=== PATIENT | female | born 1950 | race Hispanic/Latino ===

== ENCOUNTER 2017-01-20 15:00 | Inpatient (IN) | payer OTHER, MEDICARE ==
[~2017-01-20] VITALS: Ht 152.4 cm; Wt 59.0 kg
[2017-02-07 15:06] VITALS: BP 119/66
[2017-02-07 15:42] LABS: BASOPHILS % (AUTO) 0.1 % (0.0-5.0); EOSINOPHILS % (AUTO) 2.4 % (0.0-8.0); HEMATOCRIT 34.7 % (36-48); MEAN CORPUSCULAR HEMOGLOBIN 29.9 pg (27.0-33.0); MEAN CORPUSCULAR HGB CONC 34.3 g/dL (32.0-36.0); MEAN CORPUSCULAR VOLUME 87.1 fL (79-99); MONOCYTES % (AUTO) 8.2 % (3.0-13.0); NEUTROPHILS % (AUTO) 58.3 % (40.0-77.0); NUCLEATED RED BLOOD CELLS 0.1 % (0.0-0.19); PLATELET COUNT (AUTO) 508 K/uL (130-400); RED BLOOD CELL COUNT(AUTO) 3.98 MIL/uL (4.00-5.50); RED CELL DISTRIBUTION WIDTH 13.4 % (11.0-15.5); WHITE BLOOD COUNT (AUTO) 8.6 K/uL (4.8-10.8)
[2017-02-07 15:43] LABS: APPEARANCE,URINE Clear (CLEAR); BILIRUBIN,URINE Negative (NEGATIVE); COLOR,URINE Yellow (YELLOW); GLUCOSE, URINE (UA) Negative (NEGATIVE); KETONES,URINE Negative (NEGATIVE); LEUKOCYTE ESTERASE ,URINE Negative (NEGATIVE); NITRATE,URINE Negative (NEGATIVE); OCCULT BLOOD,URINE Negative (NEGATIVE); PH,URINE 8.5 (5.0-8.0); PROTEIN,URINE Negative (NEGATIVE); UROBILINOGEN,URINE 0.2 mg/dL (0.2-1.0)
[2017-02-07 15:47] LABS: INR 0.95 (0.85-1.15); PARTIAL THROMBOPLASTIN TIME 24.9 SEC (26.3-35.5)
[2017-02-07 15:55] LABS: CREATININE 0.8 mg/dL (0.5-1.5); POTASSIUM 3.3 mmol/L (3.5-5.1)
[2017-02-07] MEDS ORDERED: ACET1TAB25 PO (16:18)
[2017-02-07] MEDS ORDERED: PREMC VG (16:18)
[2017-02-07] MEDS ORDERED: OMEP20CA10 PO (16:19)
[2017-02-07] MEDS ORDERED: LEVO88TA7 PO (16:20)
[2017-02-07] MEDS ORDERED: VENL-62 PO (16:20)
[2017-02-07] MEDS ORDERED: CALC667C10 PO (16:21)
[2017-02-07] MEDS ORDERED: LOSA1TAB54 PO (16:21)
[2017-02-07] MEDS ORDERED: CALC0.5C11 PO (16:22)
[2017-02-07] MEDS ORDERED: POTA10CA69 PO (16:23)
[2017-02-07] MEDS ORDERED: FLUT16H NS (16:24)
[2017-02-07] MEDS ORDERED: CYCL30DR OP (16:25)
[2017-02-07] MEDS ORDERED: ATOR10 PO (16:25)
[2017-02-07] MEDS ORDERED: AMLO10TA2 PO (16:26)
[2017-02-08] VITALS (20 sets, daily range): BP systolic 116–178; BP diastolic 61–78
[2017-02-08] MEDS: CEFAZOLIN SODIUM 1 GM VIAL IVP SCH ×4 (06:00→23:46)
[2017-02-08] MEDS ORDERED: CELECOXIB 200 MG CAP ONE (08:11)
[2017-02-08] MEDS ORDERED: ACETAMINOPHEN EXTRA STRENGTH 500 MG TABLET ONE (08:11)
[2017-02-08] MEDS ORDERED: BUPIVACAINE/EPI/PF 0.25% 30ML VIAL IJ ONE (08:12)
[2017-02-08] MEDS ORDERED: CEFAZOLIN SODIUM 1 GM VIAL ONE (08:12)
[2017-02-08] MEDS ORDERED: OXYCODONE HCL 10 MG TAB.SR.12H PO ONE (08:12)
[2017-02-08] MEDS ORDERED: SCOPOLAMINE HYDROBROMIDE 1 EACH ADH..PATCH TD ONE (08:15)
[2017-02-08] MEDS ORDERED: ONDANSETRON HCL 4 MG/2 ML VIAL ONE (08:17)
[2017-02-08] MEDS ORDERED: DEXAMETHASONE SOD PHOSPHATE 10MG/ML 1ML VIAL ONE (08:17)
[2017-02-08] MEDS ORDERED: GLYCOPYRROLATE 0.2 MG/ML 5 ML VIAL ONE (08:17)
[2017-02-08] MEDS ORDERED: FENTANYL CITRATE PF 50 MCG/1 ML 2ML VIAL ONE (08:17)
[2017-02-08] MEDS ORDERED: MIDAZOLAM HCL 1 MG/ML 2ML VIAL ONE (08:17)
[2017-02-08] MEDS ORDERED: PROPOFOL 10 MG/ML 20ML VIAL IV ONE (08:17)
[2017-02-08] MEDS ORDERED: TRANEXAMIC ACID 1000MG/10ML IV ONE (08:39)
[2017-02-08] MEDS ORDERED: CEFAZOLIN SODIUM 1 GM VIAL IRRIG ONE (09:22)
[2017-02-08] MEDS ORDERED: EPHEDRINE SULFATE 50 MG/ML AMPULE ONE (09:25)
[2017-02-08] MEDS ORDERED: ROPIVACAINE 0.5% 5MG/ML 30ML IJ ONE (09:38)
[2017-02-08] MEDS: ACETAMINOPHEN 325 MG TAB PO SCH ×3 (11:45→23:46)
[2017-02-08] MEDS ORDERED: OXYCODONE HCL 5 MG TAB PO PRN ×2 (11:45)
[2017-02-08] MEDS ORDERED: POTASSIUM CHLORIDE 10% ELIXIR 20 MEQ/15 ML UDCUP PO PRN (11:45)
[2017-02-08] MEDS ORDERED: POTASSIUM CHLORIDE 20 MEQ ERTAB PO PRN (11:45)
[2017-02-08] MEDS ORDERED: POTASSIUM CHLORIDE 20MEQ/100ML 100 ML IV PRN (11:45)
[2017-02-08] MEDS ORDERED: LIDOCAINE HCL-MPF 1% 2ML VIAL IVP PRN (11:45)
[2017-02-08] MEDS ORDERED: TEMAZEPAM 15 MG CAPSULE PO PRN (11:45)
[2017-02-08] MEDS ORDERED: CALCIUM CARBONATE 500 MG TABLET PO PRN (11:45)
[2017-02-08] MEDS ORDERED: FERROUS FUMARATE 324 MG TABLET PO PRN (11:45)
[2017-02-08] MEDS: PSYLLIUM SEED 1 EACH PACKET PO SCH (12:00)
[2017-02-08] MEDS ORDERED: MEPERIDINE-PF 25 MG/ML SYG ONE (12:18)
[2017-02-08] MEDS: SODIUM CHLORIDE 0.9% 1000ML 1,000 ML IV SCH ×2 (16:24→23:47)
[2017-02-08] MEDS ORDERED: CEFAZOLIN 2GM / 50 ML 50 ML IV SCH (16:45)
[2017-02-08] MEDS: ASPIRIN 325 MG TABLET PO SCH (17:22)
[2017-02-08] MEDS: WATER FOR INJECTION,STERILE 20 ML VIAL IJ SCH ×2 (17:24→23:47)
[2017-02-08] MEDS: CALCIUM ACETATE 667 MG CAPSULE PO SCH (20:22)
[2017-02-08] MEDS: CALCITRIOL 0.25 MCG CAPSULE PO SCH (20:22)
[2017-02-08] MEDS: POTASSIUM CHLORIDE 20 MEQ ERTAB PO SCH (20:22)
[2017-02-08] MEDS: PREGABALIN 25 MG CAP PO SCH (20:27)
[2017-02-08] MEDS: ESTROGENS,CONJUGATED 0.625 MG/GM 42.5 GM VAG CRM VG SCH (20:27)
[2017-02-08] MEDS: CELECOXIB 200 MG CAP PO SCH (20:27)
[2017-02-08] MEDS: FAMOTIDINE 20MG TAB 20 MG TAB PO SCH (20:27)
[2017-02-08] MEDS: PROMETHAZINE HCL 25 MG/ML 1ML AMPULE IM PRN (23:47)
[2017-02-09] VITALS: BP 119/63
[2017-02-09] MEDS ORDERED: LEVOTHYROXINE 88 MCG TABLET ONE (03:20)
[2017-02-09] MEDS: LEVOTHYROXINE 88 MCG TABLET PO SCH (03:33)
[2017-02-09 04:00] VITALS: BP 128/68
[2017-02-09 05:12] LABS: HEMATOCRIT 30.3 % (36-48); MEAN CORPUSCULAR HEMOGLOBIN 29.6 pg (27.0-33.0); MEAN CORPUSCULAR HGB CONC 34.4 g/dL (32.0-36.0); MEAN CORPUSCULAR VOLUME 85.9 fL (79-99); PLATELET COUNT (AUTO) 431 K/uL (130-400); RED BLOOD CELL COUNT(AUTO) 3.53 MIL/uL (4.00-5.50); RED CELL DISTRIBUTION WIDTH 13.1 % (11.0-15.5); WHITE BLOOD COUNT (AUTO) 14.8 K/uL (4.8-10.8)
[2017-02-09 05:20] LABS: CREATININE 0.8 mg/dL (0.5-1.5)
[2017-02-09] MEDS: ACETAMINOPHEN 325 MG TAB PO SCH ×3 (05:31→16:29)
[2017-02-09 07:44] VITALS: BP 126/73
[2017-02-09] MEDS: CALCIUM ACETATE 667 MG CAPSULE PO SCH ×3 (09:00→20:10)
[2017-02-09] MEDS: CALCITRIOL 0.25 MCG CAPSULE PO SCH ×2 (09:00→20:11)
[2017-02-09] MEDS: POTASSIUM CHLORIDE 20 MEQ ERTAB PO SCH ×2 (09:00→20:08)
[2017-02-09] MEDS: ASPIRIN 325 MG TABLET PO SCH ×2 (10:15→16:33)
[2017-02-09] MEDS: FLUTICASONE PROPIONATE 50MCG/SPRAY 16 GM BOTTLE NS SCH (10:15)
[2017-02-09] MEDS: CELECOXIB 200 MG CAP PO SCH ×2 (10:15→20:07)
[2017-02-09] MEDS: ATORVASTATIN CALCIUM 10 MG TABLET PO SCH (10:16)
[2017-02-09] MEDS: VENLAFAXINE HCL XR 37.5 MG CAP PO SCH (10:16)
[2017-02-09] MEDS: LOSARTAN/HYDROCHLOROTHIAZIDE 50-12.5MG TABLET PO SCH (10:16)
[2017-02-09] MEDS: FAMOTIDINE 20MG TAB 20 MG TAB PO SCH ×2 (10:17→20:07)
[2017-02-09] MEDS: PANTOPRAZOLE SODIUM 40 MG TABLET.DR PO SCH (10:17)
[2017-02-09] MEDS: AMLODIPINE BESYLATE 5 MG TAB PO SCH (10:17)
[2017-02-09] MEDS: PREGABALIN 25 MG CAP PO SCH ×2 (10:17→20:07)
[2017-02-09] MEDS: POLYETHYLENE GLYCOL 3350 17 GM POWD.PACK PO SCH (10:17)
[2017-02-09] MEDS: PROMETHAZINE HCL 25 MG/ML 1ML AMPULE IM PRN (10:23)
[2017-02-09 11:19] VITALS: BP 110/51
[2017-02-09] MEDS: PSYLLIUM SEED 1 EACH PACKET PO SCH (12:55)
[2017-02-09 16:16] VITALS: BP 136/66
[2017-02-09 20:00] VITALS: BP 117/59
[2017-02-09] MEDS: ESTROGENS,CONJUGATED 0.625 MG/GM 42.5 GM VAG CRM VG SCH (20:12)
[2017-02-10] VITALS: BP 122/58
[2017-02-10] MEDS: LEVOTHYROXINE 88 MCG TABLET PO SCH (03:26)
[2017-02-10 04:00] VITALS: BP 120/56
[2017-02-10] MEDS: ACETAMINOPHEN 325 MG TAB PO SCH ×4 (05:32→17:05)
[2017-02-10 05:54] LABS: HEMATOCRIT 28.5 % (36-48); MEAN CORPUSCULAR HEMOGLOBIN 30.1 pg (27.0-33.0); MEAN CORPUSCULAR HGB CONC 34.3 g/dL (32.0-36.0); MEAN CORPUSCULAR VOLUME 87.7 fL (79-99); PLATELET COUNT (AUTO) 424 K/uL (130-400); RED BLOOD CELL COUNT(AUTO) 3.25 MIL/uL (4.00-5.50); RED CELL DISTRIBUTION WIDTH 13.5 % (11.0-15.5); WHITE BLOOD COUNT (AUTO) 10.9 K/uL (4.8-10.8)
[2017-02-10 06:19] LABS: POTASSIUM 3.9 mmol/L (3.5-5.1)
[2017-02-10 08:00] VITALS: BP 108/57
[2017-02-10] MEDS: CALCIUM ACETATE 667 MG CAPSULE PO SCH ×2 (09:11→14:29)
[2017-02-10] MEDS: POLYETHYLENE GLYCOL 3350 17 GM POWD.PACK PO SCH (09:11)
[2017-02-10] MEDS: CALCITRIOL 0.25 MCG CAPSULE PO SCH (09:11)
[2017-02-10] MEDS: PREGABALIN 25 MG CAP PO SCH (09:11)
[2017-02-10] MEDS: PANTOPRAZOLE SODIUM 40 MG TABLET.DR PO SCH (09:12)
[2017-02-10] MEDS: AMLODIPINE BESYLATE 5 MG TAB PO SCH (09:12)
[2017-02-10] MEDS: ASPIRIN 325 MG TABLET PO SCH ×2 (09:12→17:05)
[2017-02-10] MEDS: CELECOXIB 200 MG CAP PO SCH (09:12)
[2017-02-10] MEDS: FAMOTIDINE 20MG TAB 20 MG TAB PO SCH (09:12)
[2017-02-10] MEDS: ATORVASTATIN CALCIUM 10 MG TABLET PO SCH (09:12)
[2017-02-10] MEDS: POTASSIUM CHLORIDE 20 MEQ ERTAB PO SCH (09:12)
[2017-02-10] MEDS: FLUTICASONE PROPIONATE 50MCG/SPRAY 16 GM BOTTLE NS SCH (09:13)
[2017-02-10] MEDS: VENLAFAXINE HCL XR 37.5 MG CAP PO SCH (09:13)
[2017-02-10] MEDS: LOSARTAN/HYDROCHLOROTHIAZIDE 50-12.5MG TABLET PO SCH (09:13)
[2017-02-10] MEDS: TRAMADOL HCL 50 MG TABLET PO PRN ×2 (09:17→15:22)
[2017-02-10] MEDS ORDERED: BISACODYL 5 MG TABLET.DR PO PRN (11:45)
[2017-02-10 12:00] VITALS: BP 130/60
[2017-02-10] MEDS: PSYLLIUM SEED 1 EACH PACKET PO SCH (12:04)
[2017-02-10 16:00] VITALS: BP 127/59
[2017-02-10] MEDS ORDERED: TYL3 PO (18:42)
[2017-02-10] MEDS ORDERED: ASPI-1012 PO (18:42)
[2017-02-11] MEDS ORDERED: BISACODYL 10 MG SUPP.RECT RC PRN (11:45)
== END 2017-02-10 20:35 | DRG 470 ==
LOC: EDSTATUS 02-07 15:00 → DAHIP 02-08 07:25 → 4AH 02-08 12:58
PROVIDERS: ADMIT Orthopaedic Surgery; ATTEND Orthopaedic Surgery
PROC: 0SRC0J9 Replacement of Right Knee Joint with Synthetic Substitute, Cemented, Open Approach (ICD-10-PCS; principal; 2017-02-08 08:33)
DX: T84.89XA Other specified complication of internal orthopedic prosthetic devices, implants and grafts, initial encounter (principal); E78.5 Hyperlipidemia, unspecified; I10 Essential (primary) hypertension; I25.10 Atherosclerotic heart disease of native coronary artery without angina pectoris; K21.9 Gastro-esophageal reflux disease without esophagitis; Y83.8 Other surgical procedures as the cause of abnormal reaction of the patient, or of later complication, without mention of misadventure at the time of the procedure; Z85.850 Personal history of malignant neoplasm of thyroid; Z90.710 Acquired absence of both cervix and uterus; Z88.8 Allergy status to other drugs, medicaments and biological substances
CPT/HCPCS: 36415; 76000; 80048; 81003; 84132; 85025; 85027; 85610; 85730; 87070; 87076; 87205; 88304; 88305; 88311; A4218; C1713; J0690; J1100; J2175; J2250; J2405; J2550; J2704; J2795; J3010; J3490; J7030

== ENCOUNTER → 2017-05-24 | Outpatient (CLI) | payer OTHER, MEDICARE ==
[~2017-05-24] MED LIST: ACET1TAB25 PO; AMLO10TA2 PO; ASPI-1012 PO; ATOR10 PO; CALC0.5C11 PO; CALC667C10 PO; CYCL30DR OP; FLUT16H NS; LEVO88TA7 PO; LOSA1TAB54 PO; OMEP20CA10 PO; POTA10CA69 PO; PREMC VG; TYL3 PO; VENL-62 PO
== END | disposition home or self-care (01) ==
LOC: RAH 12:43
PROVIDERS: ATTEND Family Medicine
DX: R42 Dizziness and giddiness (principal); R41.3 Other amnesia
CPT/HCPCS: 70450

== ENCOUNTER → 2017-06-08 | Outpatient (CLI) | payer OTHER, MEDICARE | END | disposition home or self-care (01) | LOC: RAH 09:44 | PROVIDERS: ATTEND Family Medicine | DX: R13.10 Dysphagia, unspecified (principal); R41.3 Other amnesia | CPT/HCPCS: G8996; G8997; G8998; 74230; 92611 ==

== ENCOUNTER → 2017-07-31 | Outpatient (CLI) | payer OTHER, MEDICARE | END | disposition home or self-care (01) | LOC: RAH 12:32 | PROVIDERS: ATTEND Family Medicine | DX: M79.606 Pain in leg, unspecified (principal) | CPT/HCPCS: 93926 ==

== ENCOUNTER → 2017-11-27 | Outpatient (CLI) | payer OTHER, MEDICARE ==
[~2017-11-27] MED LIST changes: -AMLO10TA2 PO; +AMLO10TA6 PO
== END | disposition home or self-care (01) ==
LOC: OIH 10:41
PROVIDERS: ATTEND Family Medicine
DX: M54.2 Cervicalgia (principal); M25.572 Pain in left ankle and joints of left foot; M25.511 Pain in right shoulder
CPT/HCPCS: 72040; 73030; 73610

== ENCOUNTER → 2017-12-13 | Outpatient (CLI) | payer OTHER, MEDICARE | END | disposition home or self-care (01) | LOC: RAH 10:33 | PROVIDERS: ATTEND Internal Medicine Gastroenterology | DX: R11.2 Nausea with vomiting, unspecified (principal); R10.9 Unspecified abdominal pain; R14.0 Abdominal distension (gaseous) | CPT/HCPCS: 78264; A9541 ==

== ENCOUNTER → 2018-01-09 | Outpatient (CLI) | payer OTHER, MEDICARE | END | disposition home or self-care (01) | LOC: RAH 09:36 | PROVIDERS: ATTEND Family Medicine | DX: R92.8 Other abnormal and inconclusive findings on diagnostic imaging of breast (principal); Z78.0 Asymptomatic menopausal state | CPT/HCPCS: 76641; 77066 ==

== ENCOUNTER → 2018-04-05 | Outpatient (CLI) | payer OTHER, MEDICARE ==
[~2018-04-05] MED LIST changes: -AMLO10TA6 PO; +AMLO10TA7 PO
== END | disposition home or self-care (01) ==
LOC: OIH 12:52
PROVIDERS: ATTEND Family Medicine
DX: I10 Essential (primary) hypertension (principal)
CPT/HCPCS: 71046

== ENCOUNTER → 2018-05-30 | Outpatient (CLI) | payer OTHER, MEDICARE | END | disposition home or self-care (01) | LOC: OIH 15:39 | PROVIDERS: ATTEND Internal Medicine | DX: M19.072 Primary osteoarthritis, left ankle and foot (principal); M19.071 Primary osteoarthritis, right ankle and foot | CPT/HCPCS: 73610 ==

== ENCOUNTER 2018-09-13 10:34 | Emergency (ER) | payer OTHER, MEDICARE ==
[~2018-09-13 10:34] MED LIST changes: +OMEP-50 PO; -OMEP20CA10 PO
[2018-09-13 11:15] LABS: APPEARANCE,URINE CLOUDY (CLEAR); BILIRUBIN,URINE NEGATIVE (NEGATIVE); COLOR,URINE YELLOW (YELLOW); GLUCOSE, URINE (UA) NEGATIVE (NEGATIVE); KETONES,URINE NEGATIVE (NEGATIVE); LEUKOCYTE ESTERASE ,URINE LARGE (NEGATIVE); NITRATE,URINE NEGATIVE (NEGATIVE); OCCULT BLOOD,URINE SMALL (NEGATIVE); PH,URINE 7.5 (5.0-8.0); PROTEIN,URINE TRACE mg/dL (NEGATIVE); UROBILINOGEN,URINE 0.2 mg/dL (0.2-1.0)
[2018-09-13] MEDS ORDERED: CEFTRIAXONE SODIUM 500 MG VIAL ONE (11:36)
[2018-09-13] MEDS ORDERED: METRONIDAZOLE 500 MG TABLET ONE (11:36)
[2018-09-13] MEDS ORDERED: LIDOCAINE HCL-MPF 1% 2ML VIAL ONE (11:37)
[2018-09-13] MEDS ORDERED: AZITHROMYCIN 250 MG TABLET PO ONE (11:37)
[2018-09-13 11:54] LABS: BACTERIA,URINE Moderate /HPF (None Seen)
[2018-09-13 11:55] LABS: MUCUS,URINE Moderate LPF (None Seen)
== END 2018-09-13 11:58 | disposition home or self-care (01) ==
LOC: EDH 10:34
DX: N76.0 Acute vaginitis (principal); A64 Unspecified sexually transmitted disease; K21.9 Gastro-esophageal reflux disease without esophagitis; I10 Essential (primary) hypertension; Z90.710 Acquired absence of both cervix and uterus; Z90.49 Acquired absence of other specified parts of digestive tract; Z88.6 Allergy status to analgesic agent
CPT/HCPCS: 81001; 87210; 87486; 87797; 96372; 99284; J0696; J3490

== ENCOUNTER 2018-09-17 17:53 | Observation (INO) | payer OTHER, MEDICARE ==
[2018-09-17 18:46] LABS: BASOPHILS % (AUTO) 0.3 % (0.0-5.0); EOSINOPHILS % (AUTO) 2.1 % (0.0-8.0); HEMATOCRIT 32.5 % (36-48); LYMPHOCYTES % (AUTO) 21.3 % (21.0-51.0); MEAN CORPUSCULAR HEMOGLOBIN 29.1 pg (27.0-33.0); MEAN CORPUSCULAR HGB CONC 33.7 g/dL (32.0-36.0); MEAN CORPUSCULAR VOLUME 86.6 fL (79-99); MONOCYTES % (AUTO) 6.2 % (3.0-13.0); NEUTROPHILS % (AUTO) 70.1 % (40.0-77.0); PLATELET COUNT (AUTO) 448 K/uL (130-400); RED BLOOD CELL COUNT(AUTO) 3.76 MIL/uL (4.00-5.50); RED CELL DISTRIBUTION WIDTH 14.4 % (11.0-15.5); WHITE BLOOD COUNT (AUTO) 11.9 K/uL (4.8-10.8)
[2018-09-17] MEDS ORDERED: PROCHLORPERAZINE EDISYLATE 10 MG/2 ML VIAL ONE (18:54)
[2018-09-17] MEDS ORDERED: SODIUM CHLORIDE 0.9% 1000ML 1,000 ML IV ONE (18:55)
[2018-09-17] MEDS ORDERED: ONDANSETRON ODT 4 MG TAB ONE (18:55)
[2018-09-17 18:58] LABS: INR 0.9 (0.85-1.15); PARTIAL THROMBOPLASTIN TIME 27.7 SEC (26.3-35.5); PROTHROMBIN TIME 9.5 SEC (9.6-11.6)
[2018-09-17 19:01] LABS: CREATININE 1.1 mg/dL (0.5-1.5); POTASSIUM 3.4 mmol/L (3.5-5.1)
[2018-09-17 19:06] LABS: ALBUMIN 3.6 g/dL (3.5-5.0); BILIRUBIN,TOTAL 0.2 mg/dL (0.2-1.0); TOTAL PROTEIN, SERUM 7.5 g/dL (6.0-8.3)
[2018-09-17] MEDS ORDERED: IOHEXOL-350 75 ML VIAL IV ONE (19:21)
[2018-09-17] MEDS ORDERED: ACETAMINOPHEN 325 MG TAB PO PRN (22:15)
[2018-09-17] MEDS ORDERED: ONDANSETRON HCL 4 MG/2 ML VIAL IVP PRN (22:15)
[2018-09-17] MEDS ORDERED: HYDRALAZINE HCL 20 MG/ML VIAL IV PRN (22:15)
[2018-09-17] MEDS ORDERED: KETOROLAC TROMETHAMINE 15MG/ML IV PRN (23:45)
[2018-09-18] VITALS (7 sets, daily range): BP systolic 121–145; BP diastolic 63–77
[2018-09-18] MEDS ORDERED: DEXL60CA3 PO (00:56)
[2018-09-18] MEDS ORDERED: MIRA50TA PO (00:56)
[2018-09-18 05:53] LABS: CREATINE KINASE, TOTAL 59 U/L (21-232); MYOGLOBIN 27 ng/mL (10-92); TROPONIN I < 0.04 ng/mL (0.00-0.06)
[2018-09-18] MEDS: PANTOPRAZOLE SODIUM 40 MG TABLET.DR PO SCH (07:30)
--- NOTE | 2018-09-18 07:45 | NUR ---
ASSESSMENT PT IS AAOX4 DENIES CP DENIES SOB DENIES NV NO COMPLAINTS RESTING IN BED. NO NEURO DEFICITS NOTED DENIES NUMBNESS DENIES TINGLING, NO SLURRED SPEECH. SITTING UPRIGHT IN BED CALL LIGHT WITHIN REACH.
[2018-09-18] MEDS: VENLAFAXINE HCL XR 37.5 MG CAP PO SCH (08:07)
[2018-09-18] MEDS: LEVOTHYROXINE 88 MCG TABLET PO SCH (08:07)
[2018-09-18] MEDS: AMLODIPINE BESYLATE 5 MG TAB PO SCH (08:07)
[2018-09-18] MEDS: POTASSIUM CHLORIDE 20 MEQ ERTAB PO SCH ×2 (08:07→19:51)
[2018-09-18] MEDS: LOSARTAN/HYDROCHLOROTHIAZIDE 50-12.5MG TABLET PO SCH (08:08)
[2018-09-18] MEDS: CALCITRIOL 0.5 MCG PO SCH ×2 (08:08→19:53)
[2018-09-18] MEDS: MYRBETRIQ 50 MG PO SCH (08:08)
[2018-09-18] MEDS: ASPIRIN 325 MG TABLET PO SCH (08:22)
[2018-09-18] MEDS ORDERED: NON-FORMULARY MEDICATION 1 EACH (Omeprazole 40 MG) PO SCH (09:00)
--- NOTE | 2018-09-18 09:00 | NUR ---
DOWN TO MRI VIA WC WITH RAD STAFF
--- NOTE | 2018-09-18 09:40 | NUR ---
RETURNED FROM MRI AAOX3 NO COMPLAINTS. TELE PACK REAPPLIED.
--- NOTE | 2018-09-18 10:38 | NUR ---
DYSPHAGIA EVAL COMPLETED. -S/S OF ASPIRATION. RECOMMEND REGULAR, THIN LIQUIDS; PILLS WHOLE WITH LIQUIDS. Addendum: 09/18/18 at 1040 by AIDEN JORDAN, [facility] Amended: Links added.
--- NOTE | 2018-09-18 10:42 | NUR ---
COGNITIVE EVAL COMPLETE. COGNITIVE-LINGUISTIC ABILITIES WITHIN FUNCTIONAL LIMITS. EVALUATION: Pt AAOX3. Pt REQUESTS WANTS AND NEEDS INDEPENDENTLY. Pt INTELLIGIBLE AT 100% ACCURACY TO THE UNFAMILIAR LISTENER. Pt COMMUNICATING AT CONVERSATIONAL LEVEL WITH NO DEFICITS IDENTIFIED AT THIS TIME. Pt COMPLETED COGNITIVE-LINGUISTIC EVALUATION TARGETING: ORIENTATION, ATTENTION/CONCENTRATION, MEMORY (IMMEDIATE, SHORT-TERM AND LONG-TERM), PROBLEM SOLVING, LOGIC/REASONING/INFERENCE, THOUGHT ORGANIZATION, FUNCTIONAL MATH AND TELLING TIME. Pt ABLE TO COMPLETE TASKS WITH CORRECT AND TIMELY ANSWERS TO ALL SECTIONS. G-CODES SPOKEN LANGUAGE EXPRESSION: [id number] Addendum: 09/18/18 at 1044 by AIDEN JORDAN [facility] Amended: Links added.
[2018-09-18] MEDS ORDERED: SIMVASTATIN 20 MG TABLET PO SCH (21:00)
[2018-09-19 03:59] VITALS: BP 155/80
[2018-09-19] MEDS: PANTOPRAZOLE SODIUM 40 MG TABLET.DR PO SCH (06:30)
[2018-09-19 07:52] VITALS: BP 141/75
[2018-09-19] MEDS: ASPIRIN 325 MG TABLET PO SCH (08:20)
[2018-09-19] MEDS: POTASSIUM CHLORIDE 20 MEQ ERTAB PO SCH (08:21)
[2018-09-19] MEDS: LOSARTAN/HYDROCHLOROTHIAZIDE 50-12.5MG TABLET PO SCH (08:21)
[2018-09-19] MEDS: LEVOTHYROXINE 88 MCG TABLET PO SCH ×2 (08:21→08:34)
[2018-09-19] MEDS: AMLODIPINE BESYLATE 5 MG TAB PO SCH (08:21)
[2018-09-19] MEDS: VENLAFAXINE HCL XR 37.5 MG CAP PO SCH (08:21)
[2018-09-19] MEDS: CALCITRIOL 0.5 MCG PO SCH (08:23)
[2018-09-19] MEDS: MYRBETRIQ 50 MG PO SCH (08:23)
--- NOTE | 2018-09-19 09:30 | NUR ---
RESTING IN BED WITH EYES CLOSED, RESP.'S EVEN AND UNLABORED. CALL LIGHT WITHIN REACH. PT.'S GRANDSON, APPROX. 9 YRS OLD, IN BED WITH PT. FAMILY MEMBERS AT BEDSIDE.
--- NOTE | 2018-09-19 11:40 | NUR ---
HL REMOVED, CATHETER INTACT. DISCHARGE INSTRUCTIONS GIVEN, VERBALIZED UNDERSTANDING.
[2018-09-19 11:51] VITALS: BP 121/59
== END 2018-09-19 12:30 | disposition home or self-care (01) ==
LOC: EDH 17:53 → EDHIP 22:48 → 2DH 23:39
PROVIDERS: ADMIT Internal Medicine Critical Care Medicine; ATTEND Internal Medicine Critical Care Medicine
DX: G43.909 Migraine, unspecified, not intractable, without status migrainosus (principal); E78.5 Hyperlipidemia, unspecified; K21.9 Gastro-esophageal reflux disease without esophagitis; E89.0 Postprocedural hypothyroidism; I10 Essential (primary) hypertension; Z79.82 Long term (current) use of aspirin; Z79.01 Long term (current) use of anticoagulants; Z85.850 Personal history of malignant neoplasm of thyroid; Z79.899 Other long term (current) drug therapy; Z90.49 Acquired absence of other specified parts of digestive tract; Z96.651 Presence of right artificial knee joint; Z88.8 Allergy status to other drugs, medicaments and biological substances
CPT/HCPCS: 36415 ×2; 70450; 70496; 70498; 70544; 70547; 70551; 72040; 80053; 82550 ×3; 83874; 84484 ×3; 85025; 85610; 85730; 92522; 92610; 93005; 93306; 97161; 99291; G0378 ×37; G8978; G8979; G8980; G8981; G8982; G8983; J0780; J7030; Q9967

== ENCOUNTER → 2018-12-12 | Outpatient (CLI) | payer OTHER, MEDICARE ==
[~2018-12-12] MED LIST changes: -ACET1TAB25 PO; -ASPI-1012 PO; -CALC667C10 PO; -CYCL30DR OP; +DEXL60CA3 PO; -FLUT16H NS; +MIRA50TA PO; -PREMC VG; -TYL3 PO
== END | disposition home or self-care (01) ==
LOC: OIH 10:56
PROVIDERS: ATTEND Family Medicine
DX: D72.829 Elevated white blood cell count, unspecified (principal)
CPT/HCPCS: 71046

== ENCOUNTER 2019-02-04 13:39 | Observation (INO) | payer OTHER, MEDICARE ==
[~2019-02-04] VITALS: Ht 154.9 cm; Wt 68.3 kg
[~2019-02-04 13:39] MED LIST changes: -OMEP-50 PO; +OMEP20CA12 PO
[2019-02-04 14:41] LABS: BASOPHILS % (AUTO) 0.4 % (0.0-5.0); EOSINOPHILS % (AUTO) 2.4 % (0.0-8.0); HEMATOCRIT 36.5 % (36-48); LYMPHOCYTES % (AUTO) 27.3 % (21.0-51.0); MEAN CORPUSCULAR HEMOGLOBIN 26.1 pg (27.0-33.0); MEAN CORPUSCULAR HGB CONC 31.5 g/dL (32.0-36.0); MEAN CORPUSCULAR VOLUME 82.8 fL (79-99); MONOCYTES % (AUTO) 5.8 % (3.0-13.0); NEUTROPHILS % (AUTO) 62.9 % (40.0-77.0); PLATELET COUNT (AUTO) 486 K/uL (130-400); RED BLOOD CELL COUNT(AUTO) 4.41 MIL/uL (4.00-5.50); RED CELL DISTRIBUTION WIDTH 15.2 % (11.0-15.5); WHITE BLOOD COUNT (AUTO) 9.1 K/uL (4.8-10.8)
[2019-02-04 14:50] LABS: APPEARANCE,URINE CLEAR (CLEAR); BILIRUBIN,URINE NEGATIVE (NEGATIVE); COLOR,URINE STRAW (YELLOW); GLUCOSE, URINE (UA) >=1000 mg/dL (NEGATIVE); KETONES,URINE NEGATIVE (NEGATIVE); LEUKOCYTE ESTERASE ,URINE NEGATIVE (NEGATIVE); NITRATE,URINE NEGATIVE (NEGATIVE); OCCULT BLOOD,URINE NEGATIVE (NEGATIVE); PROTEIN,URINE NEGATIVE (NEGATIVE); UROBILINOGEN,URINE 0.2 mg/dL (0.2-1.0)
[2019-02-04 14:52] LABS: BACTERIA,URINE Rare /HPF (None Seen); RBC,URINE None Seen /HPF (0-1); WBC,URINE 0-1 /HPF (0-1)
[2019-02-04 14:53] LABS: SQUAMOUS EPITHELIAL CELL,UR 0-2 /HPF (0-2)
[2019-02-04 14:54] LABS: INR 0.9 (0.85-1.15); PROTHROMBIN TIME 9.5 SEC (9.6-11.6)
[2019-02-04 14:58] LABS: CREATININE 1.5 mg/dL (0.5-1.5); POTASSIUM 3.5 mmol/L (3.5-5.1)
[2019-02-04 15:00] LABS: ALBUMIN 3.8 g/dL (3.5-5.0); BILIRUBIN,TOTAL 0.3 mg/dL (0.2-1.0)
[2019-02-04] MEDS ORDERED: CEFTRIAXONE SODIUM 1 GM ONE (15:36)
[2019-02-04] MEDS ORDERED: SODIUM CHLORIDE 0.9% 1000ML 1,000 ML IV ONE ×3 (15:37→23:30)
[2019-02-04] MEDS ORDERED: INSULIN HUMULIN R 100 UNIT/ML 3ML ONE ×2 (15:37→22:20)
[2019-02-04] MEDS ORDERED: ONDANSETRON HCL 4 MG/2 ML VIAL ONE (17:02)
--- NOTE | 2019-02-04 18:30 | NUR ---
report received via telephone at 1830 from BILLY Headley, ER
--- NOTE | 2019-02-04 18:50 | NUR ---
patient arrived in room from ER at this time; report given to BILLY Cuello; patient resting comfortably in bed; vs wnl; no complaints at this time
[2019-02-04] MEDS ORDERED: POTASSIUM CHLORIDE 10% ELIXIR 20 MEQ/15 ML UDCUP PO PRN (19:30)
[2019-02-04] MEDS ORDERED: POTASSIUM CHLORIDE 20MEQ/100ML 100 ML IV PRN (19:30)
[2019-02-04] MEDS ORDERED: POTASSIUM CHLORIDE 20 MEQ ERTAB PO PRN (19:30)
[2019-02-04] MEDS ORDERED: LIDOCAINE HCL-MPF 1% 2ML VIAL IJ PRN (19:30)
[2019-02-04 19:44] VITALS: BP 142/84
[2019-02-04] MEDS: LACTATED RINGERS 1000ML 1,000 ML IV SCH (20:24)
[2019-02-04] MEDS: CEFTRIAXONE SODIUM 1 GM IV SCH (21:00)
[2019-02-04] MEDS ORDERED: GLUCAGON 1MG KIT 1 MG ML IM PRN (21:45)
[2019-02-04] MEDS ORDERED: LACTULOSE 20 GM/30 ML UDCUP PO PRN (21:45)
[2019-02-04] MEDS ORDERED: ACETAMINOPHEN 325 MG TAB PO PRN ×2 (21:45)
[2019-02-04] MEDS ORDERED: CEFTRIAXONE SODIUM 1 GM IV SCH (21:45)
[2019-02-04] MEDS ORDERED: ONDANSETRON HCL 4 MG/2 ML VIAL IV PRN (21:45)
[2019-02-04] MEDS ORDERED: DEXTROSE 50%-WATER 50 ML DISP.SYRIN IV PRN (21:45)
[2019-02-04] MEDS ORDERED: HYDROCODONE/ACETAMINOPHEN 5/325 MG TAB PO PRN (21:45)
[2019-02-04] MEDS ORDERED: GUAIFENESIN-DM 200/20 MG 10 ML PO PRN (21:45)
[2019-02-04] MEDS ORDERED: NITROGLYCERIN 0.4 MG SL TAB SL PRN (21:45)
[2019-02-04] MEDS: LEVOFLOXACIN 500 MG/D5W 100 ML 100 ML IV SCH (22:24)
[2019-02-04] MEDS ORDERED: POTA20TA12 PO (23:13)
[2019-02-04] MEDS ORDERED: LEVO100T12 PO (23:13)
[2019-02-04 23:30] VITALS: BP 135/74
[2019-02-05] VITALS (10 sets, daily range): BP systolic 109–158; BP diastolic 45–82
[2019-02-05] MEDS ORDERED: INSULIN HUMULIN R 100 UNIT/ML 3ML SQ SCH
[2019-02-05] MEDS: LACTATED RINGERS 1000ML 1,000 ML IV SCH (02:57)
[2019-02-05 04:12] LABS: BASOPHILS % (AUTO) 0.5 % (0.0-5.0); EOSINOPHILS % (AUTO) 2.9 % (0.0-8.0); HEMATOCRIT 30.1 % (36-48); LYMPHOCYTES % (AUTO) 44.1 % (21.0-51.0); MEAN CORPUSCULAR HEMOGLOBIN 26.1 pg (27.0-33.0); MEAN CORPUSCULAR HGB CONC 32.2 g/dL (32.0-36.0); MEAN CORPUSCULAR VOLUME 81.1 fL (79-99); NEUTROPHILS % (AUTO) 44.1 % (40.0-77.0); PLATELET COUNT (AUTO) 457 K/uL (130-400); RED BLOOD CELL COUNT(AUTO) 3.71 MIL/uL (4.00-5.50); RED CELL DISTRIBUTION WIDTH 14.7 % (11.0-15.5)
[2019-02-05 04:17] LABS: HEMOGLOBIN A1C 10.5 % (4.0-6.0)
[2019-02-05 04:42] LABS: THYROID STIMULATING HORMONE 0.98 uIU/mL (0.36-3.74)
[2019-02-05 05:12] LABS: POTASSIUM 2.6 mmol/L (3.5-5.1)
[2019-02-05] MEDS: INSULIN HUMULIN R 100 UNIT/ML 3ML SQ SCH ×4 (07:13→20:38)
[2019-02-05] MEDS: FAMOTIDINE 20MG TAB 20 MG TAB PO SCH (08:15)
[2019-02-05] MEDS: ENOXAPARIN SODIUM 30 MG/0.3 ML SQ SCH (08:16)
[2019-02-05] MEDS ORDERED: SODIUM BICARB 50MEQ 50ML VIAL IV SCH (08:30)
[2019-02-05] MEDS ORDERED: LACTATED RINGERS 1000ML IV SCH (08:30)
[2019-02-05] MEDS ORDERED: POTASSIUM CHLORIDE 20 MEQ in SODIUM CHLORIDE 0.9% 100 ML IV SCH (08:30)
[2019-02-05] MEDS ORDERED: POTASSIUM CHLORIDE 20MEQ/100ML 100 ML IV SCH (08:45)
--- NOTE | 2019-02-05 11:17 | NUR ---
CHART CHECK COMPLETED. Pt IS A 68 YEAR OLD FEMALE ADMITTED SECONDARY TO DYSURIA AND HYPERGLYCEMIA. Pt HAS A PAST MEDICAL HISTORY OF DMII, ACUTE ON CHRONIC RENAL FAILURE, LACTIC ACIDOSIS, NEUROGENIC BLADDER S/P HYSTERECTOMY. Pt CURRENTLY ON DIABETIC DIET. NO SWALLOWING CONCERNS AT THIS TIME. SKILLED SPEECH THERAPY IS NOT WARRANTED. Addendum: 02/05/19 at 1119 by AIDEN JORDAN, [facility] Amended: Links added.
--- NOTE | 2019-02-05 12:44 | NUR ---
RD NOTIFICATION NEW ONSET DM. NO COMPLAINTS OF N/V/C/D AT THIS TIME. SKIN IS INTACT. MEDS REVIEWED. LABS REVIEWED. PT UNABLE TO IDENTIFY FOODS RECOMMENDED/ TO AVOID REGARDING DM DIET AND NUTRITION. RD PROVIDED DM MEDICAL NUTRITION THERAPY AND A1C GOALS WERE ESTABLISHED WITH PT. SHE ASKED QUESTIONS, RD ANSWERED AND PT VERBALIZED UNDERSTANDING. EDUCATION MATERIALS WERE PROVIDED. ADVANCE DIET TOLERATED TO 60GMCCD NUTRITION EDUCATION COMPLETED Addendum: 02/05/19 at [address] Amended: Links added.
--- NOTE | 2019-02-05 12:48 | NUR ---
NUTRITION EDUCATION COMPLETED NEW ONSET DM. NO COMPLAINTS OF N/V/C/D AT THIS TIME. SKIN IS INTACT. MEDS REVIEWED. LABS REVIEWED. PT UNABLE TO IDENTIFY FOODS RECOMMENDED/ TO AVOID REGARDING DM DIET AND NUTRITION. RD PROVIDED DM MEDICAL NUTRITION THERAPY AND A1C GOALS WERE ESTABLISHED WITH PT. SHE ASKED QUESTIONS, RD ANSWERED AND PT VERBALIZED UNDERSTANDING. EDUCATION MATERIALS WERE PROVIDED. Addendum: 02/05/19 at [address] Amended: Links added.
[2019-02-05] MEDS: CEFTRIAXONE SODIUM 1 GM IV SCH (15:30)
[2019-02-05] MEDS: LEVOFLOXACIN 500 MG/D5W 100 ML 100 ML IV SCH (20:36)
[2019-02-05] MEDS ORDERED: INSULIN GLARGINE 100 UNITS/ML 10 ML VIAL SQ SCH (21:00)
[2019-02-06 03:03] VITALS: BP 134/63
[2019-02-06] MEDS: INSULIN HUMULIN R 100 UNIT/ML 3ML SQ SCH ×3 (06:42→16:30)
[2019-02-06 07:00] VITALS: BP 136/67
--- NOTE | 2019-02-06 08:00 | NUR ---
AM NOTE Awake, alert, and oriented x3. Denies any pain or shortness of breath. Instructed on use of call light for any assistance, verbalized understanding. Sinus rhythm in 60s on telemetry monitoring.
[2019-02-06] MEDS: FAMOTIDINE 20MG TAB 20 MG TAB PO SCH (09:06)
[2019-02-06] MEDS: ENOXAPARIN SODIUM 30 MG/0.3 ML SQ SCH (09:07)
[2019-02-06 11:00] VITALS: BP 141/73
[2019-02-06 14:20] LABS: BASOPHILS % (AUTO) 0.5 % (0.0-5.0); EOSINOPHILS % (AUTO) 5.2 % (0.0-8.0); HEMATOCRIT 30.5 % (36-48); LYMPHOCYTES % (AUTO) 35.9 % (21.0-51.0); MEAN CORPUSCULAR HEMOGLOBIN 25.9 pg (27.0-33.0); MEAN CORPUSCULAR HGB CONC 31.5 g/dL (32.0-36.0); MEAN CORPUSCULAR VOLUME 82.2 fL (79-99); MONOCYTES % (AUTO) 7.9 % (3.0-13.0); NEUTROPHILS % (AUTO) 49.2 % (40.0-77.0); PLATELET COUNT (AUTO) 390 K/uL (130-400); RED BLOOD CELL COUNT(AUTO) 3.71 MIL/uL (4.00-5.50); WHITE BLOOD COUNT (AUTO) 7.4 K/uL (4.8-10.8)
[2019-02-06 14:36] LABS: POTASSIUM 3.1 mmol/L (3.5-5.1)
[2019-02-06 15:00] VITALS: BP 129/67
[2019-02-06] MEDS: CEFTRIAXONE SODIUM 1 GM IV SCH (15:03)
--- NOTE | 2019-02-06 15:54 | NUR ---
D/C PLAN CM spoke to pt regarding d/c planning. Pt is ind. and lives alone. States she has provider about 16 hrs/week. Daughter named Odessa to assist with transportation as needed. Plan to home. Patient states this is new dx of DM. States she does not have glucometer at home. States she recently had lab work performed by PCP. States she is unsure about dx and would like to speak to MD iraheta. No other needs verbalized or identified. Patient is insured and can fill prescriptions. Plan to home. CM to f/u. Addendum: 02/06/19 at 1557 by ELROY RUTH CM Amended: Links added.
[2019-02-06] MEDS ORDERED: METF-446 PO (16:39)
--- NOTE | 2019-02-06 17:57 | NUR ---
DC Pt discharged home as ordered by MD. Education given on new medication Metformin and glucometer usage, verbalized understanding. Family at bedside.
== END 2019-02-06 18:05 | disposition home or self-care (01) ==
LOC: EDH 13:39 → EDHIP 15:41 → 2BH 19:02 → 2AH 02-05 19:34
PROVIDERS: ADMIT Internal Medicine; ATTEND Internal Medicine
DX: E11.22 Type 2 diabetes mellitus with diabetic chronic kidney disease (principal); I12.9 Hypertensive chronic kidney disease with stage 1 through stage 4 chronic kidney disease, or unspecified chronic kidney disease; N18.9 Chronic kidney disease, unspecified; N20.9 Urinary calculus, unspecified; E11.10 Type 2 diabetes mellitus with ketoacidosis without coma; E87.1 Hypo-osmolality and hyponatremia; N17.9 Acute kidney failure, unspecified; E11.65 Type 2 diabetes mellitus with hyperglycemia; Z90.710 Acquired absence of both cervix and uterus
CPT/HCPCS: 36415 ×3; 71045; 74176; 80048 ×2; 80053; 81001; 82150; 82310; 82550; 82948 ×12; 83036; 83605 ×3; 83690; 84439; 84443; 84484; 85025 ×3; 85610; 85730; 87040; 87804 ×2; 93005; 96361 ×2; 96365; 96366; 96372 ×2; 96375; 96376; 99284; G0378 ×50; J0696 ×3; J1650 ×2; J1815 ×8; J1956 ×2; J2405; J7030 ×2; J7120 ×2

== ENCOUNTER → 2019-11-04 | Outpatient (CLI) | payer OTHER, MEDICARE ==
[~2019-11-04] MED LIST changes: +LEVO100T12 PO; +METF-446 PO; +POTA20TA12 PO
== END | disposition home or self-care (01) ==
LOC: RAH 09:48
PROVIDERS: ATTEND Internal Medicine
DX: K44.9 Diaphragmatic hernia without obstruction or gangrene (principal); R14.0 Abdominal distension (gaseous); K29.50 Unspecified chronic gastritis without bleeding; K21.0 Gastro-esophageal reflux disease with esophagitis; Z90.49 Acquired absence of other specified parts of digestive tract
CPT/HCPCS: 74240

== ENCOUNTER → 2019-12-31 | Outpatient (CLI) | payer MEDICARE ==
[~2019-12-31] MED LIST changes: +AMLO-258 PO; -AMLO10TA7 PO
== END | disposition home or self-care (01) ==
LOC: RAH 15:17
PROVIDERS: ATTEND Family Medicine
DX: M79.661 Pain in right lower leg (principal); M79.662 Pain in left lower leg
CPT/HCPCS: 93925

== ENCOUNTER → 2020-01-22 | Outpatient (CLI) | payer MEDICARE | END | disposition home or self-care (01) | LOC: RAH 12:10 | PROVIDERS: ATTEND Family Medicine | DX: N63.32 Unspecified lump in axillary tail of the left breast (principal) | CPT/HCPCS: 76641; 77066 ==

== ENCOUNTER 2020-09-08 08:44 | Emergency (ER) | payer MEDICARE ==
[~2020-09-08] VITALS: Ht 154.9 cm; Wt 68.9 kg
[2020-09-08 08:51] VITALS: BP 143/79
[2020-09-08] MEDS ORDERED: ACETAMINOPHEN 500 MG TABLET PO SCH (09:30)
[2020-09-08] MEDS ORDERED: ACET-66 PO (09:30)
[2020-09-08 10:50] VITALS: BP 126/78
== END 2020-09-08 10:51 | disposition home or self-care (01) ==
LOC: EDH 08:44
DX: R07.89 Other chest pain (principal); E11.9 Type 2 diabetes mellitus without complications; E78.00 Pure hypercholesterolemia, unspecified; I10 Essential (primary) hypertension; Z79.84 Long term (current) use of oral hypoglycemic drugs; Z79.899 Other long term (current) drug therapy; Z88.6 Allergy status to analgesic agent
CPT/HCPCS: 71045; 93005

== ENCOUNTER → 2021-03-30 | Outpatient (CLI) | payer OTHER, MEDICARE ==
[~2021-03-30] MED LIST changes: +ACET-66 PO; +POTA-192 PO; -POTA20TA12 PO
== END | disposition home or self-care (01) ==
LOC: RAH 08:46
PROVIDERS: ATTEND Internal Medicine Gastroenterology
DX: K76.0 Fatty (change of) liver, not elsewhere classified (principal); R94.5 Abnormal results of liver function studies; Z90.49 Acquired absence of other specified parts of digestive tract
CPT/HCPCS: 76700; 93975

== ENCOUNTER → 2021-08-06 | Outpatient (CLI) | payer OTHER, MEDICARE | END | disposition home or self-care (01) | LOC: RAH 13:36 | PROVIDERS: ATTEND Family Medicine | DX: N60.01 Solitary cyst of right breast (principal); N63.0 Unspecified lump in unspecified breast; Q83.1 Accessory breast; D27.0 Benign neoplasm of right ovary | CPT/HCPCS: 76641 ==

== ENCOUNTER 2022-04-14 19:56 | Emergency (ER) | payer OTHER, MEDICARE ==
[~2022-04-14] VITALS: Ht 157.5 cm; Wt 58.1 kg
[2022-04-14 19:59] VITALS: BP 140/82
[2022-04-14 20:28] LABS: APPEARANCE,URINE CLEAR (CLEAR); BILIRUBIN,URINE NEGATIVE (NEGATIVE); COLOR,URINE COLORLESS (YELLOW); GLUCOSE, URINE (UA) >=1000 mg/dL (NEGATIVE); KETONES,URINE NEGATIVE (NEGATIVE); LEUKOCYTE ESTERASE ,URINE 500 Leu/uL (NEGATIVE); NITRATE,URINE NEGATIVE (NEGATIVE); OCCULT BLOOD,URINE NEGATIVE (NEGATIVE); PH,URINE 5.5 (5.0-8.0); PROTEIN,URINE NEGATIVE (NEGATIVE); UROBILINOGEN,URINE 0.2 mg/dL (0.2-1.0)
[2022-04-14 20:30] LABS: BACTERIA,URINE RARE /HPF (None Seen); MUCUS,URINE RARE LPF (None Seen); SQUAMOUS EPITHELIAL CELL,UR RARE /HPF (0-2); YEAST,URINE BUDDING RARE /HPF (None Seen)
[2022-04-14] MEDS ORDERED: CLOT15CR23 TP (22:29)
[2022-04-14] MEDS ORDERED: FLUCONAZOLE 100 MG TAB ONE (22:35)
[2022-04-15] MEDS ORDERED: FLUCONAZOLE 100 MG TAB PO SCH ×2 (09:00)
== END 2022-04-14 22:52 | disposition home or self-care (01) ==
LOC: EDH 19:56
DX: B37.9 Candidiasis, unspecified (principal); E11.9 Type 2 diabetes mellitus without complications; E78.00 Pure hypercholesterolemia, unspecified; I10 Essential (primary) hypertension; Z88.6 Allergy status to analgesic agent; Z88.8 Allergy status to other drugs, medicaments and biological substances; Z79.899 Other long term (current) drug therapy; Z90.49 Acquired absence of other specified parts of digestive tract; Z79.84 Long term (current) use of oral hypoglycemic drugs; Z90.710 Acquired absence of both cervix and uterus
CPT/HCPCS: 81001; 87077; 87088; 87186

== ENCOUNTER → 2022-12-09 | Outpatient (CLI) | payer OTHER, MEDICARE ==
[~2022-12-09] MED LIST changes: -ACET-66 PO; -AMLO-258 PO; +ASPI-1005 PO; -ATOR10 PO; +ATOR20TA65 PO; +CAND8TAB14 PO; +CLOT15CR23 TP; +CYCL5.5D OP; +DAPA10TA PO; +DEXL30CA4 PO; -DEXL60CA3 PO; +FLUT16H NASAL; -LEVO100T12 PO; +LEVO5TAB13 PO; +LEVO75CA5 PO; -LEVO88TA7 PO; -LOSA1TAB54 PO; +METF-444 PO; -METF-446 PO; -OMEP20CA12 PO; -POTA-192 PO; +POTA-200 PO; -POTA10CA69 PO; +PREM625 PO; +PROG100C11 PO; +VALA500T42 PO; -VENL-62 PO; +VITAD50000 PO
== END | disposition home or self-care (01) ==
LOC: RAH 08:27
PROVIDERS: ATTEND Family Medicine
DX: Z12.31 Encounter for screening mammogram for malignant neoplasm of breast (principal); N63.20 Unspecified lump in the left breast, unspecified quadrant
CPT/HCPCS: 77067

== ENCOUNTER → 2023-04-13 | Outpatient (CLI) | payer OTHER, MEDICARE ==
[~2023-04-13] MED LIST changes: +CETI10CA5 PO; +EPIN0.3P3 IJ; +HYDR50CA50 PO
[2023-04-13 08:23] LABS: BASOPHILS # (AUTO) 0.05 K/uL (0.00-0.20); BASOPHILS % (AUTO) 0.6 % (0.0-5.0); EOSINOPHILS # (AUTO) 0.59 K/uL (0.00-0.70); EOSINOPHILS % (AUTO) 6.6 % (0.0-8.0); HEMATOCRIT 39.3 % (36-48); IMMATURE GRANULOCYTE ABSOLUTE 0.06 K/uL (0-1); LYMPHOCYTES # (AUTO) 2.9 K/uL (1.0-4.8); LYMPHOCYTES % (AUTO) 32.7 % (21.0-51.0); MEAN CORPUSCULAR HEMOGLOBIN 25.5 pg (27.0-33.0); MEAN CORPUSCULAR HGB CONC 30.5 g/dL (32.0-36.0); MEAN CORPUSCULAR VOLUME 83.6 fL (79-99); MONOCYTES # (AUTO) 0.6 K/uL (0.1-1.0); NEUTROPHILS # (AUTO) 4.7 K/uL (1.8-7.7); NEUTROPHILS % (AUTO) 52.4 % (40.0-77.0); PLATELET COUNT (AUTO) 428 K/uL (130-400); RED CELL DISTRIBUTION WIDTH 17.5 % (11.0-15.5); WHITE BLOOD COUNT (AUTO) 8.9 K/uL (4.8-10.8)
[2023-04-13 08:38] LABS: BILIRUBIN,TOTAL 0.3 mg/dL (0.2-1.0); CREATININE 0.9 mg/dL (0.5-1.5); POTASSIUM 4.3 mmol/L (3.5-5.1); TOTAL PROTEIN, SERUM 8.6 g/dL (6.0-8.3)
[2023-04-13 09:23] LABS: INR <= 0.93 (0.85-1.15); PROTHROMBIN TIME 9.7 SEC (9.6-11.6)
[2023-04-13 09:25] LABS: PARTIAL THROMBOPLASTIN TIME 27.4 SEC (26.3-35.5)
== END | disposition home or self-care (01) ==
LOC: RAH 07:25
PROVIDERS: ATTEND Internal Medicine Gastroenterology
DX: N20.0 Calculus of kidney (principal); R94.5 Abnormal results of liver function studies; R10.2 Pelvic and perineal pain; I10 Essential (primary) hypertension; E78.5 Hyperlipidemia, unspecified; M25.552 Pain in left hip; M25.551 Pain in right hip; Z90.49 Acquired absence of other specified parts of digestive tract; Z90.710 Acquired absence of both cervix and uterus
CPT/HCPCS: 36415; 73502; 73521; 76700; 76856; 80053; 82105; 82784; 85025; 85610; 85730; 86015; 86038; 86215; 86235; 86381

== ENCOUNTER 2023-04-23 08:08 | Emergency (ER) | payer OTHER, MEDICARE ==
[~2023-04-23] VITALS: Ht 152.4 cm; Wt 59.0 kg
[~2023-04-23 08:08] MED LIST changes: -CETI10CA5 PO; -EPIN0.3P3 IJ; -HYDR50CA50 PO
[2023-04-23 08:09] VITALS: BP 152/77; PULSE 62; RESP 16
[2023-04-23] MEDS ORDERED: EPIN0.3P3 IJ (08:48)
[2023-04-23] MEDS ORDERED: CETI10CA5 PO (08:48)
[2023-04-23] MEDS ORDERED: HYDR50CA50 PO (08:48)
[2023-04-23] MEDS: DEXAMETHASONE SOD PHOSPHATE 4 MG/ML 1ML VIAL IM ONE (08:50)
[2023-04-23] MEDS: HYDROXYZINE 25 MG TABLET PO ONE (08:50)
== END 2023-04-23 09:03 | disposition home or self-care (01) ==
LOC: EDH 08:08
DX: R21 Rash and other nonspecific skin eruption (principal); E11.9 Type 2 diabetes mellitus without complications; E78.00 Pure hypercholesterolemia, unspecified; I10 Essential (primary) hypertension; Z79.621 Long term (current) use of calcineurin inhibitor; Z79.624 Long term (current) use of inhibitors of nucleotide synthesis; Z79.82 Long term (current) use of aspirin; Z79.84 Long term (current) use of oral hypoglycemic drugs; Z79.890 Hormone replacement therapy; Z79.899 Other long term (current) drug therapy; Z88.6 Allergy status to analgesic agent; Z90.49 Acquired absence of other specified parts of digestive tract; Z90.710 Acquired absence of both cervix and uterus; Z98.890 Other specified postprocedural states
CPT/HCPCS: 99283; 96372; J1100

== ENCOUNTER 2023-05-25 07:30 | Day surgery (SDC) | payer OTHER, MEDICARE ==
[2023-05-19 15:00] LABS: BASOPHILS # (AUTO) 0.05 K/uL (0.00-0.20); BASOPHILS % (AUTO) 0.5 % (0.0-5.0); EOSINOPHILS # (AUTO) 0.22 K/uL (0.00-0.70); EOSINOPHILS % (AUTO) 2.4 % (0.0-8.0); HEMATOCRIT 40.4 % (36-48); IMMATURE GRANULOCYTE ABSOLUTE 0.05 K/uL (0-1); LYMPHOCYTES # (AUTO) 2.9 K/uL (1.0-4.8); LYMPHOCYTES % (AUTO) 31.2 % (21.0-51.0); MEAN CORPUSCULAR HEMOGLOBIN 27.7 pg (27.0-33.0); MEAN CORPUSCULAR HGB CONC 31.7 g/dL (32.0-36.0); MEAN CORPUSCULAR VOLUME 87.4 fL (79-99); MONOCYTES # (AUTO) 0.5 K/uL (0.1-1.0); MONOCYTES % (AUTO) 5.8 % (3.0-13.0); NEUTROPHILS # (AUTO) 5.4 K/uL (1.8-7.7); NEUTROPHILS % (AUTO) 59.6 % (40.0-77.0); PLATELET COUNT (AUTO) 368 K/uL (130-400); RED BLOOD CELL COUNT(AUTO) 4.62 MIL/uL (4.00-5.50); RED CELL DISTRIBUTION WIDTH 20.4 % (11.0-15.5); WHITE BLOOD COUNT (AUTO) 9.1 K/uL (4.8-10.8)
[2023-05-19 15:10] LABS: CREATININE 0.8 mg/dL (0.5-1.0); POTASSIUM 4.5 mmol/L (3.5-5.1)
[2023-05-19 15:21] LABS: INR <= 0.93 (0.85-1.15); PROTHROMBIN TIME 9.9 SEC (9.6-11.6)
[2023-05-19 15:22] LABS: PARTIAL THROMBOPLASTIN TIME 28.7 SEC (26.3-35.5)
[2023-05-19 15:35] LABS: APPEARANCE,URINE CLEAR (CLEAR); BILIRUBIN,URINE NEGATIVE (NEGATIVE); COLOR,URINE LIGHT-YELLOW (YELLOW); GLUCOSE, URINE (UA) >=1000 mg/dL (NEGATIVE); KETONES,URINE NEGATIVE (NEGATIVE); LEUKOCYTE ESTERASE ,URINE 500 Leu/uL (NEGATIVE); NITRATE,URINE 1+ (NEGATIVE); OCCULT BLOOD,URINE NEGATIVE (NEGATIVE); PH,URINE 5.5 (5.0-8.0); PROTEIN,URINE NEGATIVE (NEGATIVE); UROBILINOGEN,URINE 0.2 mg/dL (0.2-1.0)
[2023-05-19 15:36] LABS: ADD UA MICROSCOPIC YES
[2023-05-19 15:49] VITALS: BP 171/63; PULSE 68; RESP 17
[2023-05-19 16:38] LABS: BACTERIA,URINE RARE /HPF (None Seen); MUCUS,URINE RARE LPF (None Seen); SQUAMOUS EPITHELIAL CELL,UR FEW /HPF (0-2)
[2023-05-25] VITALS (15 sets, daily range): BP systolic 98–142; BP diastolic 43–74; PULSE 70–114; RESP 15–25
[~2023-05-25] VITALS: Ht 152.4 cm; Wt 59.6 kg
[~2023-05-25 07:30] MED LIST changes: -ASPI-1005 PO; -ATOR20TA65 PO; +ATOR40TA71 PO; -CLOT15CR23 TP; +CYCL30DR OP; -CYCL5.5D OP; +DENO60DI SQ; +ERGO500093 PO; +ESTRADIOL VG; +FERS325 PO; +FISH OIL PO; +LEVO100T4 PO; -LEVO5TAB13 PO; -LEVO75CA5 PO; -PROG100C11 PO; +TRIAMCINOLONE TP; -VITAD50000 PO; +[UNRECOGNIZED DRUG - OTHER] PO
[2023-05-25] MEDS ORDERED: 0.9%NACL 1000ML 1,000 ML IV ONE (07:53)
[2023-05-25] MEDS ORDERED: LIDOCAINE PF 100MG/5ML (2%) SYRINGE 5ML ONE (08:11)
[2023-05-25] MEDS ORDERED: SCOPOLAMINE HYDROBROMIDE 1 EACH ADH..PATCH TD ONE ×2 (08:11→08:30)
[2023-05-25] MEDS ORDERED: PROPOFOL 10 MG/ML 20ML VIAL IV ONE (08:12)
[2023-05-25] MEDS ORDERED: MIDAZOLAM HCL 1 MG/ML 2ML VIAL ONE (08:12)
[2023-05-25] MEDS ORDERED: ROCURONIUM BROMIDE 10MG/1ML 5ML VL ONE (08:12)
[2023-05-25] MEDS ORDERED: FENTANYL CITRATE PF 50 MCG/1 ML 2ML VIAL ONE (08:12)
[2023-05-25] MEDS ORDERED: ONDANSETRON 4MG INJ ONE (08:14)
[2023-05-25] MEDS: CEFTRIAXONE 1G VIAL ONE (08:55)
[2023-05-25] MEDS: BOTULINUM TOXIN TYPE A 100 UNITS/VIAL INJ ONE (09:13)
[2023-05-25] MEDS ORDERED: NEOSTIGMINE METHYLSULFATE 1MG/ML IV ONE (09:21)
[2023-05-25] MEDS ORDERED: GLYCOPYRROLATE 0.2 MG/ML 5 ML VIAL ONE (09:21)
== END 2023-05-25 11:15 | disposition home or self-care (01) ==
LOC: DAH 07:30
PROVIDERS: ATTEND Urology
DX: N39.46 Mixed incontinence (principal); I10 Essential (primary) hypertension; E11.9 Type 2 diabetes mellitus without complications; E78.5 Hyperlipidemia, unspecified; Z79.01 Long term (current) use of anticoagulants; Z79.899 Other long term (current) drug therapy; Z79.84 Long term (current) use of oral hypoglycemic drugs
CPT/HCPCS: 80048; 85025; 85610; 85730; 87077; 87088; 87186; 81001; 36415; 71045; 93005; 52287; 82948 ×2; A6260; J7120; J3010; J7030; J3490 ×2; J2001; J0696; J2250; J2704; J2405; J2710; J0585; A4358; A4215 ×2; A4223; A4213; A4222; A4221; A4663; A4600

== ENCOUNTER 2023-12-21 06:47 | Day surgery (SDC) | payer OTHER, MEDICARE ==
[2023-12-15 14:49] VITALS: BP 137/67; PULSE 69; RESP 18; TEMP 97.5
[2023-12-15 14:59] LABS: APPEARANCE,URINE CLEAR (CLEAR); BILIRUBIN,URINE NEGATIVE (NEGATIVE); COLOR,URINE YELLOW (YELLOW); GLUCOSE, URINE (UA) >=1000 mg/dL (NEGATIVE); KETONES,URINE NEGATIVE (NEGATIVE); LEUKOCYTE ESTERASE ,URINE NEGATIVE Leu/uL (NEGATIVE); NITRATE,URINE 1+ (NEGATIVE); OCCULT BLOOD,URINE NEGATIVE (NEGATIVE); PH,URINE 5.5 (5.0-8.0); PROTEIN,URINE NEGATIVE (NEGATIVE); UROBILINOGEN,URINE 0.2 mg/dL (0.2-1.0)
[2023-12-15 15:04] LABS: ADD UA MICROSCOPIC YES
[2023-12-15 15:05] LABS: SQUAMOUS EPITHELIAL CELL,UR RARE /HPF (0-2); WBC,URINE 0-1 /HPF (0-1)
--- NOTE | 2023-12-18 16:49 | NUR ---
RE: LABS REPORTED URINE CX/SUSCEPTIBILITIES TO DR CONTRERAS, RECEIVED ORDERS FOR PATIENT TO START MACROBID 100MG PO BID TODAY. AND CANCEL ROCEPHIN. GIVE MEROPENEM IGM IV GAS ROLLER OPERATOR TO OR. CALLED PATIENT INSTRUCTED HER TO START HER MACROBID TODAY, PATIENT VERBALIZED UNDERSTANDING.
[2023-12-21] VITALS (13 sets, daily range): BP systolic 120–137; BP diastolic 57–70; PULSE 78–98; RESP 16–19; TEMP 96.8–97.7
[~2023-12-21] VITALS: Ht 152.4 cm; Wt 57.6 kg
[~2023-12-21 06:47] MED LIST changes: +CHLO4TAB32 PO; +CLOT15CR5 TP; -CYCL30DR OP; -DAPA10TA PO; -DENO60DI SQ; -DEXL30CA4 PO; +DEXL30CA9 PO; -FERS325 PO; +FEXO-263 PO; -FISH OIL PO; +LACTATED RINGERS 1000ML 1,000 ML IV ONE; -LEVO100T4 PO; +LEVO88CA4 PO; -MIRA50TA PO; +MONT-39 PO; -TRIAMCINOLONE TP; -[UNRECOGNIZED DRUG - OTHER] PO
[2023-12-21] MEDS: 0.9%NACL 1000ML 1,000 ML IV ONE (08:38)
[2023-12-21] MEDS: MEROPENEM 1 GM VIAL ONE (08:38)
[2023-12-21] MEDS: SCOPOLAMINE HYDROBROMIDE 1 EACH ADH..PATCH TD ONE (08:38)
[2023-12-21] MEDS ORDERED: dexaMETHasone SOD PHOSPHATE 10MG/ML 1ML VIAL ONE (08:45)
[2023-12-21] MEDS ORDERED: LIDOCAINE PF 100MG/5ML (2%) SYRINGE 5ML ONE ×2 (08:45→08:47)
[2023-12-21] MEDS ORDERED: proPOFol 10 MG/ML 20ML VIAL IV ONE ×2 (08:46→09:06)
[2023-12-21] MEDS ORDERED: SUCCINYLCHOLINE CHLORIDE 20 MG/ML 10 ML VIAL ONE (08:46)
[2023-12-21] MEDS ORDERED: ondanSETRON 4MG INJ ONE (08:46)
[2023-12-21] MEDS ORDERED: FENTanyl CITRate PF 50 MCG/1 ML 2ML VIAL ONE (08:47)
[2023-12-21] MEDS ORDERED: rocuRONium bROMide 10MG/1ML 5ML VL ONE (08:47)
[2023-12-21] MEDS: BOTULINUM TOXIN TYPE A 100 UNITS/VIAL INJ SCH (09:05)
[2023-12-21] MEDS ORDERED: NALoxone HCL 0.4 MG/1 ML ML ONE (09:23)
--- NOTE | 2023-12-21 10:15 | NUR ---
POST OP ASSESSMENT PT HAS A SMALL AMT OF BLOOD NOTED TO VAGINAL AREA AND PAD. AREA CLEANED AND NO ACTIVE BLEEDING NOTED AT THIS TIME
--- NOTE | 2023-12-21 10:26 | OP ---
DATE OF PROCEDURE: 12/21/2023 UROLOGIC OPERATIVE REPORT PRIMARY CARE DOCTOR: Sergei Currie DO PREOPERATIVE DIAGNOSES: Urinary urge incontinence/mixed urinary incontinence. POSTOPERATIVE DIAGNOSES: Urinary urge incontinence/mixed urinary incontinence. OPERATION PERFORMED: Cystoscopy with Botox injection. ANESTHESIA: General. DESCRIPTION OF PROCEDURE: The patient is a 73-year-old female with a history of mixed urinary incontinence with the urge component greater than stress. The patient has had a prior InterStim, which was removed and a midurethral sling. The patient reported good results with her first Botox injection and presents for her second injection. The risks of surgery were discussed to include bleeding, infection, urinary retention, Botox systemic side effects and failure to improve her incontinence symptoms. The patient reports understanding and agrees to proceed. Of note, the patient was started on Macrobid for asymptomatic bacteriuria. DESCRIPTION OF PROCEDURE: The patient was given preoperative meropenem. The patient was taken back to the operating room where general anesthesia was given. The patient was prepped and draped in a lithotomy position. A 22-Hungarian cystoscope was placed into the bladder. There were no bladder mucosal lesions or abnormalities. At this time, 100 units of Botox were reconstituted. Using a Coloplast injection needle, 20 detrusor muscle and injections were performed throughout the bladder, sparing the trigone. There were no complications noted during these injections. The patient was taken to the recovery room in stable condition. The patient is to follow up in my office in approximately 2-3 weeks for the results of her Botox. TID: [id number] RECEIPT: [id number]
--- NOTE | 2023-12-21 11:00 | NUR ---
D/C PT AND DAUGHTER GIVEN D/C INSTRUCTIONS. BOTH VOICED UNDERSTANDING. PT TAKEN OUT VIA W/C IN NO DISTRESS. NO MORE BLEEDING NOTED TO VAGINAL AREA
== END 2023-12-21 11:00 | disposition home or self-care (01) ==
LOC: DAH 06:47
PROVIDERS: ATTEND Urology
DX: N39.46 Mixed incontinence (principal); I10 Essential (primary) hypertension; E11.9 Type 2 diabetes mellitus without complications; Z88.8 Allergy status to other drugs, medicaments and biological substances; Z79.899 Other long term (current) drug therapy
CPT/HCPCS: 87086 ×2; 87186; 81001; 52287; 82948 ×2; A4663; J7030 ×2; J7120 ×2; J3010; J2310; J1100; J0330; J3490; J2003 ×2; J2704 ×2; J2405; J2185; J0585; A4358; A4215 ×2; A4223; A4222; A4221; A4600

== ENCOUNTER 2023-12-26 15:12 | Inpatient (IN) | payer OTHER, MEDICARE ==
[~2023-12-26] VITALS: Ht 152.4 cm; Wt 57.6 kg
[~2023-12-26 15:12] MED LIST changes: -LACTATED RINGERS 1000ML 1,000 ML IV ONE
[2023-12-26 16:41] LABS: BASOPHILS # (AUTO) 0.06 K/uL (0.00-0.20); BASOPHILS % (AUTO) 0.6 % (0.0-5.0); EOSINOPHILS # (AUTO) 0.63 K/uL (0.00-0.70); EOSINOPHILS % (AUTO) 5.9 % (0.0-8.0); HEMATOCRIT 36.8 % (36-48); IMMATURE GRANULOCYTE ABSOLUTE 0.18 K/uL (0-1); LYMPHOCYTES # (AUTO) 2.4 K/uL (1.0-4.8); LYMPHOCYTES % (AUTO) 22.3 % (21.0-51.0); MEAN CORPUSCULAR HGB CONC 31.5 g/dL (32.0-36.0); MEAN CORPUSCULAR VOLUME 88.9 fL (79-99); MONOCYTES # (AUTO) 0.7 K/uL (0.1-1.0); MONOCYTES % (AUTO) 6.6 % (3.0-13.0); NEUTROPHILS # (AUTO) 6.7 K/uL (1.8-7.7); NEUTROPHILS % (AUTO) 62.9 % (40.0-77.0); PLATELET COUNT (AUTO) 411 K/uL (130-400); RED BLOOD CELL COUNT(AUTO) 4.14 MIL/uL (4.00-5.50); RED CELL DISTRIBUTION WIDTH 14.6 % (11.0-15.5); WHITE BLOOD COUNT (AUTO) 10.7 K/uL (4.8-10.8)
--- NOTE | 2023-12-26 16:46 | ERN ---
General Chief Complaint: Post-Op Problem Stated Complaint: POST SURGERY Time Seen by MD: 15:15 Source: patient, family History of Present Illness Initial Comments Patient is a 73-year-old female coming in to be evaluated for multiple complaints. Per patient she had cystoscopy performed by Dr. Zuniga and a scopolamine patch was placed secondary to vertigo. Per patient after she removed her so with a corporate pilot me that she has been having nauseousness neck pain abdominal pain generalized body weakness and off balance Allergies: Coded Allergies: ibuprofen (Unverified Allergy, Mild, HIVES, HYALLUCINATIONS, 02/07/17) diphenhydramine (Unverified Allergy, Unknown, HIVES, HALLUCINATIONS, 02/07/17) Home Meds Reported Medications Levothyroxine Sodium (Levothyroxine) 88 Mcg Capsule, 1 CAP PO DAILY for 30 Days, #30 CAP 0 Refills 11/24/23 Chlorpheniramine Maleate (Chlorpheniramine Maleate) 4 Mg Tablet, 4 MG PO AD PRN for ALLERGIES, TAB 11/24/23 Montelukast Sodium (Montelukast Sodium) 10 Mg Tablet, 10 MG PO HS, TAB 11/24/23 Clotrimazole/Betamethasone Dip (Clotrimazole-Betamethasone Crm) 1 %-0.05 % Cream..g., 1 APPL TP AD for 7 Days, #30 GM 0 Refills apply to affected area(s) 11/24/23 Fexofenadine HCl (Fexofenadine HCl) 180 Mg Tablet, 1 TAB PO DAILY for allergy symptoms for 30 Days, #30 TAB 0 Refills 11/24/23 [Estradiol] No Conflict Check, 1 APPL VG 2/WK 05/19/23 Ergocalciferol (Vitamin D2) (Vitamin D2) 1,250 Mcg (55583 Unit) Capsule, 1250 MCG PO WED, CAP 05/19/23 Estrogens,Conjugated (Premarin) 0.625 Mg Tab, 0.625 MG PO AM, TAB 05/19/23 Atorvastatin Calcium (Atorvastatin Calcium) 40 Mg Tablet, 40 MG PO HS, TAB 05/19/23 Fluticasone Propionate (Flonase Nasal Grabill) 50 Mcg/Actuation Grabill, 2 SPRAY NASAL DAILY, SPRAY 09/20/22 Dexlansoprazole (Dexlansoprazole Dr) 30 Mg Cap.dr.bp, 30 MG PO DAILY 09/20/22 Valacyclovir HCl (Valacyclovir) 500 Mg Tablet, 500 MG PO DAILY, TAB 09/20/22 Candesartan Cilexetil (Candesartan Cilexetil) 8 Mg Tablet, 8 MG PO DAILY, TAB 09/20/22 Metformin HCl (Metformin HCl) 500 Mg Tablet, 750 MG PO BID, TAB 09/20/22 Calcitriol (Calcitriol) 0.5 Mcg Capsule, 0.5 MCG PO BID, CAP 09/20/22 Potassium Chloride (Potassium Chloride) 10 Meq Tab.er.prt, 20 MEQ PO TID 09/20/22 Past Medical History Past Medical History: Diabetes-Type II, High Cholesterol, Hypertension Past Surgical History: Appendectomy, Hysterectomy, Cholecystectomy Surgical History Other: THYROIDECTOMY ROS Dictation CONSTITUTIONAL: No chills, no fever, no weakness, no diaphoresis, no malaise. HEAD/FACE: No signs of trauma. EENT: No eye pain, no blurred vision, no tearing, no double vision, no ear pain, no ear discharge, no nose pain, no nasal congestion, no throat pain, no throat swelling, no mouth pain. RESPIRATORY: No cough, no orthopnea, no SOB, no stridor, no wheezing. CARDIOVASCULAR: No chest pain, no edema, no palpitations, no syncope. GASTROINTESTINAL/ABDOMINAL: No abdominal pain, no constipation, no diarrhea, no nausea, no vomiting. GENITOURINARY: No abnormal discharge, no dysuria, no frequent urination, no hematuria. No complaints of pain in the genitals. MUSCULOSKELETAL: No back pain, no gout, no joint pain, no joint swelling, no muscle pain, no muscle stiffness, no neck pain. INTEGUMENTARY: No change in color, no change in hair/nails, no dryness, no lesion, no lumps, no rash. NEUROLOGICAL/PSYCH: No anxiety, not depressed, no emotional problem, no headache, no numbness, no pre-existing deficit, no history of seizures, no tremors, no weakness. HEMATOLOGIC/LYMPHATIC: Not anemic, no history of blood clots, no apparent bleeding, no bruising, glands not swollen. All Systems Negative, Except as Noted. Physical Exam Physical Exam Dictation VITAL SIGNS: Reviewed. GENERAL APPEARANCE: Alert, oriented x3, no acute distress, obese. HEAD AND FACE: Non-traumatic. EYES: PERRL, pink conjunctivas, eyelid no trauma, anterior chamber clear. EARS: Pinnas intact and no signs of trauma or erythema. Ear canals clear and no discharge. TMs no erythema. NOSE: No discharge, no bleeding. OROPHARYNX: Mouth normal, teeth no caries, tongue pink. Pharynx clear, no erythema. Tonsils no exudates, no abscesses noted. Mucous membrane moist. NECK: Supple, non-tender, no thyromegaly, no masses, no JVD, no bruits. BREAST: Deferred. CHEST: No tenderness, no crepitus, no paradoxical movement, no retractions. LUNGS: Clear, well-ventilated, symmetric, no rales, no wheezing, no rhonchi, no stridor, good breath sounds bilaterally. HEART: Regular rate, regular rhythm, no murmur, no gallops. VASCULAR: No peripheral edema. ABDOMEN: Soft, positive bowel sounds, nondistended, no guarding, nontender, no rebound, no masses no hepatomegaly, no splenomegaly, no Wilkins's sign, no h ernias. RECTAL: Deferred. GENITAL: Deferred. NEUROLOGICAL: Normal speech, gross motor function intact, gross sensory functi on intact. MUSCULOSKELETAL: Neck nontender, full range of motion, back nontender, full range of motion. EXTREMITIES: Nontender, full range of motion. SKIN: Color pink, dry, no turgor, no rash, no lacerations, no abrasions, no contusions. LYMPHATICS: Deferred. Results Laboratory and Microbiology Lab and Micro Result Laboratory Tests Test 12/26/23 16:20 12/26/23 19:31 White Blood Count 10.7 K/uL (4.8-10.8) Red Blood Count 4.14 MIL/uL (4.00-5.50) Hemoglobin 11.6 g/dL (12.0-16.0) L Hematocrit 36.8 % (36-48) Mean Corpuscular Volume 88.9 fL (79-99) Mean Corpuscular Hemoglobin 28.0 pg (27.0-33.0) Mean Corpuscular Hemoglobin Concent 31.5 g/dL (32.0-36.0) L Red Cell Distribution Width 14.6 % (11.0-15.5) Platelet Count 411 K/uL (130-400) H Mean Platelet Volume 9.6 fL (7.5-10.5) Immature Granulocyte % (Auto) 1.7 % (0-1) H Neutrophils (%) (Auto) 62.9 % (40.0-77.0) Lymphocytes (%) (Auto) 22.3 % (21.0-51.0) Monocytes (%) (Auto) 6.6 % (3.0-13.0) Eosinophils (%) (Auto) 5.9 % (0.0-8.0) Basophils (%) (Auto) 0.6 % (0.0-5.0) Neutrophils # (Auto) 6.7 K/uL (1.8-7.7) Lymphocytes # (Auto) 2.4 K/uL (1.0-4.8) Monocytes # (Auto) 0.7 K/uL (0.1-1.0) Eosinophils # (Auto) 0.63 K/uL (0.00-0.70) Basophils # (Auto) 0.06 K/uL (0.00-0.20) Absolute Immature Granulocyte (auto 0.18 K/uL (0-1) Nucleated Red Blood Cells 0.0 % (0.0-0.19) Sodium Level 141 mmol/L (136-145) Potassium Level 4.6 mmol/L (3.5-5.1) Chloride Level 105 mmol/L (101-111) Carbon Dioxide Level 27 mmol/L (21-32) Blood Urea Nitrogen 20 mg/dL (7-18) H Creatinine 1.0 mg/dL (0.5-1.0) Glomerular Filtration Rate Calc 60 mL/min (>90) Random Glucose 135 mg/dL (70-105) H Total Calcium 10.2 mg/dL (8.5-10.1) H Total Creatine Kinase 17 U/L (21-232) #L Urine Color LIGHT-YELLOW (YELLOW) Urine Appearance CLEAR (CLEAR) Urine pH 5.0 (5.0-8.0) Urine Specific [place] 1.013 (1.001-1.031) Urine Protein NEGATIVE mg/dL (NEGATIVE) Urine Glucose (UA) >=1000 mg/dL (NEGATIVE) H Urine Ketones NEGATIVE mg/dL (NEGATIVE) Urine Occult Blood NEGATIVE (NEGATIVE) Urine Nitrate NEGATIVE (NEGATIVE) Urine Bilirubin NEGATIVE mg/dL (NEGATIVE) Urine Urobilinogen 0.2 mg/dL (0.2-1.0) Urine Leukocyte Esterase NEGATIVE Dung/uL Urine RBC 0-1 /HPF (0-1) Urine WBC 2-5 /HPF (0-1) H Urine Squamous Epithelial Cells RARE /HPF (0-2) Urine Bacteria RARE /HPF (None Seen) Labs Reviewed?: Yes EKG/XRAY/US/CT/MRI CT Scan Comment PATIENT: MC EDWARDS MR#: [id number] : 1950 SEX: F AGE: 73 LOCATION: [facility] ORDER 29 STATUS: [facility] ER REPORT#: [id number] SERVICE 28 REASON: right sided headache. trigeminal neuralgia ORDERING PHYSICIAN: JOSE ROMAN MD PROCEDURE: HEAD WO - CT HEAD/BRAIN W/O CONTRAST CT HEAD/BRAIN W/O CONTRAST INDICATION: right sided headache. Trigeminal neuralgia TECHNIQUE: CT HEAD/BRAIN W/O CONTRAST. CT was performed with one or more of the following dose reduction techniques: Automated exposure control, adjustment of the mA and/or kV according to the patient's size, or use of the iterative reconstruction technique. Comparison: None FINDINGS: Cerebral atrophy seen. Nonspecific periventricular and subcortical white matters changes are noted likely representing small vessel ischemic changes. No midline shift or herniation. No extra axial collection. No acute intracranial bleed. The visualized paranasal sinuses and mastoid air cells are normally aerated. IMPRESSION: Diffuse atrophy. No acute intracranial bleed is seen. Nonspecific white matter changes DICTATED BY: LETICIA ARNOLD MD DATE: 12/26/232050 ELECTRONICALLY SIGNED BY: LETICIA ARNOLD MD DATE: 12/26/232053 [facility] MDM: Differential diagnosis: Rationale: Tests considered and ordered secondary to shared decision making include: Previous outside records reviewed: Old ER visits. Risk of complication and/or morbidity or mortality of patient management: None Medications-Per medication reconciliation Need for hospitalization: Patient does not meet criteria for hospitalization. Need for emergency major/minor surgery: No There are no social concerns with this patient. Prescription drug management Prescriptions will include symptomatic care Patient's prior external medical records from other ER visits were reviewed by me as indicated. Prior testing and results from previous visits were reviewed. Prior tests were taken into account with medical decision making and resource utilization, independent historian/historians were used to obtain complete medical history. I independently interpreted the test that were performed, results were reviewed by me and considered findings on radiology if ordered. Medical management and examination interpretation discussions were had by me wit h other qualified healthcare professionals as indicated for the patient's care. ED Course Orders Procedure Category Date Status Time Cbc With Differential LAB 12/26/23 Complete 15:34 Basic Metabolic Panel LAB 12/26/23 Complete 15:34 Urinalysis LAB 12/26/23 Complete W/Microscopic 15:34 Creatine Kinase, Total LAB 12/26/23 Complete 15:34 0.9%Nacl 1000ml (Ns PHA 12/26/23 Complete 1000ml) 17:00 Acetaminophen 500mg PHA 12/26/23 Complete Tab (Tylenol 500mg T 20:30 Prednisone 20mg Tab PHA 12/26/23 Complete (Deltasone/Orasone 2 20:30 Ct Head/Brain W/O CT 12/26/23 Resulted Contrast 20:29 Pantoprazole 40mg Tab PHA 12/26/23 Complete (Protonix 40mg Tab 21:30 Edm Admit Bridge Order ADM 12/26/23 Transmitted 21:33 Admit Orders ADM 12/26/23 Transmitted 21:33 Current Medications Medications (Trade) Dose Ordered Sig/Alexis Route PRN Reason Start Time Stop Time Status Last Admin Dose Admin Acetaminophen (TYLenol 500MG TAB) 1,000 mg ONCE ONCE PO 12/26/23 20:30 12/26/23 20:31 DC 12/26/23 20:15 Pantoprazole Sodium (PROTonix 40MG TAB) 40 mg ONCE ONCE PO 12/26/23 21:30 12/26/23 21:31 DC Prednisone (deltaSONE/ oraSONE 20MG TAB) 20 mg ONCE ONCE PO 12/26/23 20:30 12/26/23 20:31 DC 12/26/23 20:14 Sodium Chloride 1,000 ml @ 0 mls/hr ONCE ONCE IV 12/26/23 17:00 12/26/23 17:01 DC 12/26/23 18:11 Vital Signs Date Time Temp Pulse Resp B/P (MAP) Pulse Ox O2 Delivery O2 Flow Rate FiO2 11/19/24 20:55 70 18 158/67 99 Room Air* 0 21 12/26/23 19:56 98.2 71 18 167/73 100 Room Air* 0 21 12/26/23 18:00 77 20 153/72 100 Room Air* 0 21 12/26/23 15:17 97.9 89 16 144/82 99 Room Air 0 7:00 p.m. patient is signed out to me by a.m. physician. She is a 73-year-old female who underwent a cystoscopy by Dr. Zuniga 5 days ago she started experiencing some lower abdominal pain. She also has other nonspecific symptoms of headaches facial pain. She is a known diabetic and hypertensive. She reports that she did receive with cystoscopy Botox injection. Due to increased capacity of patient census in the ED, labs were delayed. Vital signs are stable she is satting 99% on room air. Labs reviewed CBC is within normal limits except for a hemoglobin of 11.6 BNP 7 is normal. Urinalysis is still pending at this time 9:20 p.m. urinalysis is unremarkable for any acute UTI. CT scan of the head was done in view of the ongoing headache which was essentially unremarkable for any acute intracranial bleed but she does have some atrophy and White matter disease. Upon re-evaluation she continues to have now upper abdomi nal pain. Clinically abdomen is very soft and no rigidity or guarding. We will admit for GI evaluation. Trial of PPI. Patient accepted by mid-level provider, bradford of the hospitalist group for further admission Problem List Problem Lists: (1) Abdominal pain (2) Right-sided headache (3) Neurogenic bladder (4) Uncontrolled type II diabetes mellitus (5) Trigeminal neuralgia of right side of face DX & DISP Disposition: Inpatient Decision to Admit Time: 21:19 Departure Impression: Primary Impression: Abdominal pain Additional Impressions: Severe frontal headaches, Trigeminal neuralgia, Neurogenic bladder, Uncontrolled type II diabetes mellitus Condition: Stable Additional Instructions: Patient and the caregiver have been informed of all the diagnostic tests and the imaging conducted during the today's visit to the emergency room and has verbalized understanding of the results I have personally reviewed and interpreted all diagnostic exams performed here in the ER today as well as the vital signs documented by the nursing staff. The patient is now being discharged to home and should follow up with the primary care physician or the specialist as directed by the ER staff. Follow-up with primary care provider in 1 to 2 days. Take medications as directed here in the emergency room. Okay to continue home medications unless otherwise discussed during your visit in the emergency room today. Return to your nearest emergency room if symptoms worsen or if there is no improvement. Call 911 if you need immediate assistance. Take Tylenol or Motrin [id number] as needed and if no contraindications are present. Increase oral hydration. A wound culture or urine culture was ordered here in the emergency room department please follow-up with primary care provider and advise them to get repeat ports from our facility. If you had any Merlin wrap/splints that were applied here, please do not remove them until you see your primary care or specialty. Referrals: BOONE SOLIS (PCP) FRANCA CARUSO MD Dec 26, 2023 16:45 JOSE ROMAN MD Dec 26, 2023 19:14
[2023-12-26 16:54] LABS: POTASSIUM 4.6 mmol/L (3.5-5.1)
--- NOTE | 2023-12-26 18:00 | NUR ---
PT BROUGHT INTO ER BED 15 AT THIS TIME. PT STATES SHE HAD PROCEDURE TO," HELP MY WEAK BLADDER AND INCONTINENCE." ON 12/21/[address] BILL. SINCE PROCEDURE PT WITH HEADACHES,DIZZINESS, RT EAR PAIN, AND ABDOMINAL PAIN. Addendum: 12/26/23 at 1808 by LCERVANTES PROCEDURE DONE BY DR CONTRERAS NOT DR BILL
[2023-12-26] MEDS: 0.9%NACL 1000ML 1,000 ML IV ONE (18:11)
[2023-12-26] MEDS: predniSONE 20 MG TABLET PO ONE (20:14)
[2023-12-26] MEDS: acetaMINOPHEN 500 MG TABLET PO ONE (20:15)
[2023-12-26 20:17] LABS: APPEARANCE,URINE CLEAR (CLEAR); BILIRUBIN,URINE NEGATIVE (NEGATIVE); COLOR,URINE LIGHT-YELLOW (YELLOW); GLUCOSE, URINE (UA) >=1000 mg/dL (NEGATIVE); KETONES,URINE NEGATIVE (NEGATIVE); LEUKOCYTE ESTERASE ,URINE NEGATIVE Leu/uL (NEGATIVE); NITRATE,URINE NEGATIVE (NEGATIVE); OCCULT BLOOD,URINE NEGATIVE (NEGATIVE); PROTEIN,URINE NEGATIVE (NEGATIVE); UROBILINOGEN,URINE 0.2 mg/dL (0.2-1.0)
[2023-12-26 20:25] LABS: BACTERIA,URINE RARE /HPF (None Seen); MUCUS,URINE RARE LPF (None Seen); RBC,URINE 0-1 /HPF (0-1); SQUAMOUS EPITHELIAL CELL,UR RARE /HPF (0-2)
--- NOTE | 2023-12-26 20:54 | HMCIMG ---
CT HEAD/BRAIN W/O CONTRAST INDICATION: right sided headache. Trigeminal neuralgia TECHNIQUE: CT HEAD/BRAIN W/O CONTRAST. CT was performed with one or more of the following dose reduction techniques: Automated exposure control, adjustment of the mA and/or kV according to the patient's size, or use of the iterative reconstruction technique. Comparison: None FINDINGS: Cerebral atrophy seen. Nonspecific periventricular and subcortical white matters changes are noted likely representing small vessel ischemic changes. No midline shift or herniation. No extra axial collection. No acute intracranial bleed. The visualized paranasal sinuses and mastoid air cells are normally aerated. IMPRESSION: Diffuse atrophy. No acute intracranial bleed is seen. Nonspecific white matter changes
--- NOTE | 2023-12-26 22:29 | HP ---
[facility] HISTORY AND PHYSICAL Date of Service: Dec 26, 2023 Time of Service: 21:54 PCP: Kush Mai HISTORY OF PRESENT ILLNESS: This is a 73 year old female with past medical history of diabetes,hypertension,thyroid cancer,hyperlipidemia,hypothyroidism & urinary incontinence who presents to the ED for multiple complaints : such as headache,facial pain ,dry mouth,generalized body weakness ,left ankle pain and abdominal pain which started today.Patient reports she had a cystoscopy with botox injection last ,5 days ago and she had a scopolamine patch placed by and after she removed it she noticed she started having all these symptoms so she decided to come to the ED for evaluation.Patyient reports she has nausea and non bloody vomiting x 1 today.Patient reports she didnt have these symptoms on her first cystoscopy procedure as this is the second time she said. Seen and examined patient in the ED ,awake,alert and coherent continue to complain of dry mouth, abdominal pain and mild headache. Patient denies fever, chills, constipation, diarrhea, dysuria, chest pain, palpitation, cough and shortness of breaths. Vital signs temperature 98.2, heart rate 70, blood pressure 158/67 saturation 99% on room air. Labs: WBC 10.7, hemoglobin 11.6, hematocrit 36.8, platelet count 411. BUN 20 glucose 135, total calcium 10.[address] head without contrast result revealed diffuse atrophy no acute intracranial bleed is seen nonspecific white matter changes. While in the ER patient was given Protonix 40 mg p.o., his own 20 mg p.o., Tylenol 1000 mg p.o. and started on NS 1 L bolus. We will admit patient for further medical man agement. REVIEW OF SYSTEMS CONSTITUTIONAL: Denies fevers, chills, or night sweats. No unintentional weight loss reported. NEUROLOGICAL: Complain of generalized body weakness and headache Denies tremors. ENT: Complain of dry mouth No hearing loss, otalgia, otorrhea, rhinitis, rhinorrhea, hoarseness, or sore throat. CARDIOVASCULAR: Denies any exertional angina, dyspnea on exertion, orthopnea, paroxysmal nocturnal dyspnea, palpitations, life-threatening arrhythmias, claudication. PULMONARY: Denies any shortness of breath, cough, phlegm/sputum, hemoptysis, pleuritic chest pain. SLEEP: Denies morning headaches, daytime somnolence or napping. Denies difficulty falling asleep, staying asleep, waking from sleep. Denies knowledge of snoring. GASTROINTESTINAL: Complain of bilateral upper quadrant pain, nausea and vomiting x1 Denies any type of dysphagia to either liquids or solids. Denies pyrosis, early satiety, diarrhea, constipation, or changes in stool consistency or caliber. Denies coffee-ground emesis, hematemesis, hematochezia, or melanotic stools. GENITOURINARY: Denies frequency, urgency, nocturia, hematuria or incontinence (Storage/Irritative symptoms.) Low urinary stream, straining to void, urinary intermittency or hesitancy, splitting of the voiding stream, terminal dribbling. ENDOCRINOLOGIC: Denies polyuria, polydipsia, polyphagia or heat/cold intolerances. HEMATOLOGIC: Denies thrombophilia/previous clots, or coagulopathy/bleeding disorders. ONCOLOGIC: Denies personal history of malignancy. DERMATOLOGIC: Denies rashes or pruritus. PSYCHIATRIC: Denies any suicidal or homicidal ideation. Denies hallucinations. PAST MEDICAL HISTORY: [ Hypertension hyperlipidemia hypothyroidism thyroid cancer and diabetes ] PAST SURGICAL HISTORY: [Appendectomy, cholecystectomy, hysterectomy, right knee surgery x2, thyroidectomy, cystoscopy x2 ] PAST SOCIAL HISTORY: [ Patient lives alone. Patient denies alcohol tobacco and recreational drug use ] FAMILY HISTORY: [ Hypertension, diabetes and cancer ] Coded Allergies: ibuprofen (Unverified Allergy, Mild, HIVES, HYALLUCINATIONS, 02/07/17) diphenhydramine (Unverified Allergy, Unknown, HIVES, HALLUCINATIONS, 02/07/17) PHYSICAL EXAM GENERAL APPEARANCE: The patient is awake, alert, and oriented, in no acute cardiopulmonary distress. NEUROLOGICAL: Cranial nerves II-XII grossly intact. Motor is 5/5 in bilateral upper and lower extremities proximal to distal. No sensory deficits. HEENT: Face is symmetric. Pupils are equal and reactive. Extraocular movements are intact. NECK: Supple. No JVD. No thyromegaly. No submental, submandibular, pre- /postauricular, occipital or supraclavicular lymphadenopathy. CHEST: Normal chest expansion. No Telemetry. LUNGS: Absence of any rales, rhonchi or any wheezing. CARDIOVASCULAR: Regular. S1 and S2 normal. No appreciable rubs, murmurs or gallops. ABDOMEN: Soft, nontender, and nondistended. There is no rebound, voluntary gu arding, or rigidity. : Deferred. No Freitas. EXTREMITIES: Non-edematous and not cyanotic. No clubbing. Good capillary refill. SKIN: No skin breakdown. Vital Sign (Last 24 Hours) 12/26/23 12/26/23 19:56 20:55 Temp 98.2 Pulse 70 Resp 18 B/P (MAP) 158/67 Pulse Ox 99 O2 Delivery Room Air* O2 Flow Rate 0 FiO2 21 LABS: Laboratory: Test 12/26/23 19:31 12/26/23 16:20 Range/Units Urine Color LIGHT-YELLOW YELLOW Urine Appearance CLEAR CLEAR Urine pH 5.0 5.0-8.0 Urine Specific [place] 1.013 1.001-1.031 Urine Protein NEGATIVE NEGATIVE mg/dL Urine Glucose (UA) >=1000 H NEGATIVE mg/dL Urine Ketones NEGATIVE NEGATIVE mg/dL Urine Occult Blood NEGATIVE NEGATIVE Urine Nitrate NEGATIVE NEGATIVE Urine Bilirubin NEGATIVE NEGATIVE mg/dL Urine Urobilinogen 0.2 0.2-1.0 mg/dL Urine Leukocyte Esterase NEGATIVE NEGATIVE Dung/uL Urine RBC 0-1 0-1 /HPF Urine WBC 2-5 H 0-1 /HPF Urine Squamous Epithelial Cells RARE 0-2 /HPF Urine Bacteria RARE None Seen /HPF White Blood Count 10.7 4.8-10.8 K/uL Red Blood Count 4.14 4.00-5.50 MIL/uL Hemoglobin 11.6 L 12.0-16.0 g/dL Hematocrit 36.8 36-48 % Mean Corpuscular Volume 88.9 79-99 fL Mean Corpuscular Hemoglobin 28.0 27.0-33.0 pg Mean Corpuscular Hemoglobin Concent 31.5 L 32.0-36.0 g/dL Red Cell Distribution Width 14.6 11.0-15.5 % Platelet Count 411 H 130-400 K/uL Mean Platelet Volume 9.6 7.5-10.5 fL Immature Granulocyte % (Auto) 1.7 H 0-1 % Neutrophils (%) (Auto) 62.9 40.0-77.0 % Lymphocytes (%) (Auto) 22.3 21.0-51.0 % Monocytes (%) (Auto) 6.6 3.0-13.0 % Eosinophils (%) (Auto) 5.9 0.0-8.0 % Basophils (%) (Auto) 0.6 0.0-5.0 % Neutrophils # (Auto) 6.7 1.8-7.7 K/uL Lymphocytes # (Auto) 2.4 1.0-4.8 K/uL Monocytes # (Auto) 0.7 0.1-1.0 K/uL Eosinophils # (Auto) 0.63 0.00-0.70 K/uL Basophils # (Auto) 0.06 0.00-0.20 K/uL Absolute Immature Granulocyte (auto 0.18 0-1 K/uL Nucleated Red Blood Cells 0.0 0.0-0.19 % Sodium Level 141 136-145 mmol/L Potassium Level 4.6 3.5-5.1 mmol/L Chloride Level 105 101-111 mmol/L Carbon Dioxide Level 27 21-32 mmol/L Blood Urea Nitrogen 20 H 7-18 mg/dL Creatinine 1.0 0.5-1.0 mg/dL Glomerular Filtration Rate Calc 60 >90 mL/min Random Glucose 135 H 70-105 mg/dL Total Calcium 10.2 H 8.5-10.1 mg/dL Total Creatine Kinase 17 #L 21-232 U/L DIAGNOSTICS / RADIOLOGY: [ ] ASSESSMENT: Abdominal pain POA Primary headache POA Neurogenic bladder POA Uncontrolled diabetes POA Hyperlipidemia POA Uncontrolled hypertension POA Hypothyroidism POA Possible trigeminal neuralgia POA Hypercalcemia POA Neurogenic bladder POA Recent cystoscopy with Botox injection POA PLAN: We will admit patient in medical telemetry We will keep patient nothing by mouth We will start NS @ 75 ml / hr x 2 bags and re evaluate We will start on Famotidine 20 mg IV bid for GI prophylaxis We will replace electrolytes as needed per protocol We will start on insulin sliding scale AC & HS with hypoglycemia protocol We will add prn medication for fever,pain, nausea & vomiting Will request fecal occult blood Will obtain KUB Will seek Gastroenterology consultation We will reconcile home meds once medlist available We will request labs in am Further orders to follow depending on above results ADVANCED CARE PLANNING 1. Which of the following were discussed? Hospice Care - No Therapeutic options - Yes Advance Directives - No Other discussions - 2. Discussed with who? Patient 3. Voluntary nature of this service was explained to the patient? Yes 4. Amount of time spent - __18____ 5. Reviewed by Physician? (if this service was performed by NPP) Yes Patient seen and examined by me. Agree with note by SALES OFFICE ADMINISTRATOR SEE ADDITIONAL ORDERS PER CHART DISCUSSED WITH NURSING STAFF PAULIE HOLLIS DETECTIVE CAPTAIN Dec 26, 2023 22:29
[2023-12-26] MEDS ORDERED: DEXTROSE 50%-WATER 50 ML DISP.SYRIN IV PRN (22:30)
[2023-12-26] MEDS ORDERED: PoTASSium chloRIDE 20MEQ/100ML 100 ML IV PRN (22:30)
[2023-12-26] MEDS ORDERED: guaiFENesin-DM 200/20MG 10ML PO PRN (22:30)
[2023-12-26] MEDS ORDERED: ondanSETRON 4MG INJ IV PRN (22:30)
[2023-12-26] MEDS ORDERED: GLUCAGON 1MG KIT 1 MG ML IM PRN (22:30)
[2023-12-26] MEDS ORDERED: hydrALAZine 20MG/ML VIAL IV PRN (22:30)
--- NOTE | 2023-12-26 23:09 | HMCIMG ---
ABD 1VW HISTORY: Abdominal pain COMPARISON: None FINDINGS: A frontal projection of the abdomen was obtained. Small bowel dilatation is seen. Fecal material is seen in the colon. Degenerative changes of the thoracolumbar spine are noted. IMPRESSION: 1. Mild small bowel dilatation.
[2023-12-27] MEDS: PANTOPrazole 40 MG TAB DR PO ONE (00:41)
[2023-12-27] MEDS: 0.9%NACL 1000ML 1,000 ML IV SCH (00:41)
[2023-12-27] MEDS ORDERED: CALC0.5C11 PO (00:59)
[2023-12-27] MEDS ORDERED: CYCL30DR OP (02:26)
[2023-12-27] MEDS ORDERED: CAND8TAB14 PO (02:26)
[2023-12-27] MEDS ORDERED: DAPA10TA PO (02:26)
[2023-12-27] MEDS ORDERED: MIRA50TA PO (02:26)
[2023-12-27] MEDS ORDERED: ESTR42.53 VG (02:26)
[2023-12-27] MEDS ORDERED: PREM625 PO (02:26)
[2023-12-27] MEDS ORDERED: CRAN1CAP5 PO (03:35)
[2023-12-27] MEDS ORDERED: D-MA500C PO (03:35)
[2023-12-27] MEDS ORDERED: ASPI-1521 PO (03:35)
[2023-12-27] MEDS: acetaMINOPHEN 325 MG TAB PO PRN (05:07)
[2023-12-27] MEDS ORDERED: METF-444 PO (05:51)
[2023-12-27] MEDS ORDERED: MACR100 PO (06:13)
[2023-12-27] MEDS: acetaMINOPHEN 325 MG TAB ONE (06:14)
[2023-12-27 07:29] LABS: BASOPHILS # (AUTO) 0.04 K/uL (0.00-0.20); BASOPHILS % (AUTO) 0.5 % (0.0-5.0); EOSINOPHILS # (AUTO) 0.04 K/uL (0.00-0.70); EOSINOPHILS % (AUTO) 0.5 % (0.0-8.0); HEMATOCRIT 36.1 % (36-48); IMMATURE GRANULOCYTE ABSOLUTE 0.09 K/uL (0-1); LYMPHOCYTES # (AUTO) 1.9 K/uL (1.0-4.8); LYMPHOCYTES % (AUTO) 24.3 % (21.0-51.0); MEAN CORPUSCULAR HEMOGLOBIN 28.3 pg (27.0-33.0); MEAN CORPUSCULAR HGB CONC 31.6 g/dL (32.0-36.0); MEAN CORPUSCULAR VOLUME 89.6 fL (79-99); MONOCYTES # (AUTO) 0.3 K/uL (0.1-1.0); MONOCYTES % (AUTO) 3.9 % (3.0-13.0); NEUTROPHILS # (AUTO) 5.4 K/uL (1.8-7.7); NEUTROPHILS % (AUTO) 69.6 % (40.0-77.0); PLATELET COUNT (AUTO) 352 K/uL (130-400); RED BLOOD CELL COUNT(AUTO) 4.03 MIL/uL (4.00-5.50); RED CELL DISTRIBUTION WIDTH 14.3 % (11.0-15.5); WHITE BLOOD COUNT (AUTO) 7.7 K/uL (4.8-10.8)
[2023-12-27] MEDS: INSULIN humuLIN R 100 UNIT/ML 3ML SQ SCH (07:30)
[2023-12-27 07:43] LABS: ALBUMIN 3.1 g/dL (3.5-5.0); BILIRUBIN,TOTAL 0.3 mg/dL (0.2-1.0); CREATININE 0.8 mg/dL (0.5-1.0); MAGNESIUM 1.6 mg/dL (1.80-2.40); POTASSIUM 4.5 mmol/L (3.5-5.1); THYROID STIMULATING HORMONE 0.1 uIU/mL (0.36-3.74); TOTAL PROTEIN, SERUM 6.6 g/dL (6.0-8.3)
--- NOTE | 2023-12-27 07:50 | PN ---
[facility] PROGRESS NOTE Date of Service: Dec 27, 2023 Time of Service: 07:50 SUBJECTIVE: The patient has been seen and examined earlier this morning during my rounding, comfortably in bed, alert oriented x3, hemodynamically stable, afebrile, saturating normal on room air, she feels weak, no chest pain, no shortness a breath, no nausea, no vomiting, per my discussion with the patient, she admits dark stools. Home medications reviewed, patient taking aspirin, this will be placed on hold, discussed with the patient and the daughter at the bedside, all questions answered. REVIEW OF SYSTEMS CONSTITUTIONAL: Denies fevers, chills, or night sweats. No unintentional weight loss reported. NEUROLOGICAL: Complain of generalized body weakness and headache Denies tremors. ENT: Complain of dry mouth No hearing loss, otalgia, otorrhea, rhinitis, rhinorrhea, hoarseness, or sore throat. CARDIOVASCULAR: Denies any exertional angina, dyspnea on exertion, orthopnea, paroxysmal nocturnal dyspnea, palpitations, life-threatening arrhythmias, claudication. PULMONARY: Denies any shortness of breath, cough, phlegm/sputum, hemoptysis, pleuritic chest pain. SLEEP: Denies morning headaches, daytime somnolence or napping. Denies difficulty falling asleep, staying asleep, waking from sleep. Denies knowledge of snoring. GASTROINTESTINAL: Complain of bilateral upper quadrant pain, nausea and vomiting x1 Denies any type of dysphagia to either liquids or solids. Denies pyrosis, early satiety, diarrhea, constipation, or changes in stool consistency or caliber. Denies coffee-ground emesis, hematemesis, hematochezia, or melanotic stools. GENITOURINARY: Denies frequency, urgency, nocturia, hematuria or incontinence (Storage/Irritative symptoms.) Low urinary stream, straining to void, urinary intermittency or hesitancy, splitting of the voiding stream, terminal dribbling. ENDOCRINOLOGIC: Denies polyuria, polydipsia, polyphagia or heat/cold intolerances. HEMATOLOGIC: Denies thrombophilia/previous clots, or coagulopathy/bleeding disorders. ONCOLOGIC: Denies personal history of malignancy. DERMATOLOGIC: Denies rashes or pruritus. PSYCHIATRIC: Denies any suicidal or homicidal ideation. Denies hallucinations. PHYSICAL EXAM GENERAL APPEARANCE: The patient is awake, alert, and oriented, in no acute cardiopulmonary distress. NEUROLOGICAL: Cranial nerves II-XII grossly intact. Motor is 5/5 in bilateral upper and lower extremities proximal to distal. No sensory deficits. HEENT: Face is symmetric. Pupils are equal and reactive. Extraocular movements are intact. NECK: Supple. No JVD. No thyromegaly. No submental, submandibular, pre- /postauricular, occipital or supraclavicular lymphadenopathy. CHEST: Normal chest expansion. No Telemetry. LUNGS: Absence of any rales, rhonchi or any wheezing. CARDIOVASCULAR: Regular. S1 and S2 normal. No appreciable rubs, murmurs or gallops. ABDOMEN: Soft, nontender, and nondistended. There is no rebound, voluntary guarding, or rigidity. : Deferred. No Freitas. EXTREMITIES: Non-edematous and not cyanotic. No clubbing. Good capillary refill. SKIN: No skin breakdown. Vital Signs (last 8hr) Date Time Temp Pulse Resp B/P (MAP) Pulse Ox O2 Delivery O2 Flow Rate FiO2 12/27/23 06:29 98.4 60 16 139/60 99 Room Air* 0 21 12/27/23 05:16 98.1 60 16 155/74 99 Room Air* 0 21 12/27/23 01:07 98.4 59 18 150/69 99 Room Air* 0 21 LABS: Laboratory: Test 12/27/23 06:49 12/27/23 06:30 12/26/23 19:31 12/26/23 16:20 Range/Units Stool Occult Blood NEGATIVE NEGATIVE White Blood Count 7.7 # 4.8-10.8 K/uL Red Blood Count 4.03 4.00-5.50 MIL/uL Hemoglobin 11.4 L 12.0-16.0 g/dL Hematocrit 36.1 36-48 % Mean Corpuscular Volume 89.6 79-99 fL Mean Corpuscular Hemoglobin 28.3 27.0-33.0 pg Mean Corpuscular Hemoglobin Concent 31.6 L 32.0-36.0 g/dL Red Cell Distribution Width 14.3 11.0-15.5 % Platelet Count 352 130-400 K/uL Mean Platelet Volume 9.5 7.5-10.5 fL Immature Granulocyte % (Auto) 1.2 H 0-1 % Neutrophils (%) (Auto) 69.6 40.0-77.0 % Lymphocytes (%) (Auto) 24.3 21.0-51.0 % Monocytes (%) (Auto) 3.9 3.0-13.0 % Eosinophils (%) (Auto) 0.5 0.0-8.0 % Basophils (%) (Auto) 0.5 0.0-5.0 % Neutrophils # (Auto) 5.4 1.8-7.7 K/uL Lymphocytes # (Auto) 1.9 1.0-4.8 K/uL Monocytes # (Auto) 0.3 0.1-1.0 K/uL Eosinophils # (Auto) 0.04 0.00-0.70 K/uL Basophils # (Auto) 0.04 0.00-0.20 K/uL Absolute Immature Granulocyte (auto 0.09 0-1 K/uL Nucleated Red Blood Cells 0.0 0.0-0.19 % Ionized Calcium 1.23 1.16-1.32 MMOL/L Urine Color LIGHT-YELLOW YELLOW Urine Appearance CLEAR CLEAR Urine pH 5.0 5.0-8.0 Urine Specific [place] 1.013 1.001-1.031 Urine Protein NEGATIVE NEGATIVE mg/dL Urine Glucose (UA) >=1000 H NEGATIVE mg/dL Urine Ketones NEGATIVE NEGATIVE mg/dL Urine Occult Blood NEGATIVE NEGATIVE Urine Nitrate NEGATIVE NEGATIVE Urine Bilirubin NEGATIVE NEGATIVE mg/dL Urine Urobilinogen 0.2 0.2-1.0 mg/dL Urine Leukocyte Esterase NEGATIVE NEGATIVE Dung/uL Urine RBC 0-1 0-1 /HPF Urine WBC 2-5 H 0-1 /HPF Urine Squamous Epithelial Cells RARE 0-2 /HPF Urine Bacteria RARE None Seen /HPF Total Creatine Kinase 17 #L 21-232 U/L Current Medications Medications (Trade) Dose Ordered Sig/Alexis Route PRN Reason Start Time Stop Time Status Last Admin Dose Admin Acetaminophen (TYLenol 325MG TAB) 650 mg Q6H PRN PO MILD PAIN (1-3) 12/27/23 06:00 01/26/24 05:59 12/27/23 05:07 650 MG Dextrose (D50w) 50 ml AD PRN IV HYPOGLYCEMIA PROTOCOL 12/26/23 22:30 01/25/24 22:29 Famotidine (Pepcid 20mg Vial) 20 mg BID IV 12/27/23 09:00 01/26/24 08:59 Glucagon (Glucagon 1mg Kit) 1 mg AD PRN IM HYPOGLYCEMIA PROTOCOL 12/26/23 22:30 01/25/24 22:29 Guaifenesin/ Dextromethorphan (RobiTUSSin DM 200/20MG 10ML) 10 ml Q4H PRN PO COUGH 12/26/23 22:30 01/25/24 22:29 Hydralazine HCl (APRESOLine 20MG INJ) 10 mg Q6H PRN IV For:SBP above 160;DBP above 90 12/26/23 22:30 01/25/24 22:29 Insulin Human Regular (humuLIN R 100 UNIT/ML 3ML) INSULIN SLIDING SCAL... ACHS SQ 12/27/23 07:30 01/26/24 07:29 Magnesium Sulfate 50 ml @ 0 mls/hr PROTOCOL PRN IV OTHER [SEE ORDER COMMENTS] 12/26/23 22:30 01/25/24 22:29 Ondansetron HCl (zoFRAN 4MG INJ) 4 mg Q6H PRN IV NAUSEA/VOMITING 12/26/23 22:30 01/25/24 22:29 Potassium Chloride 100 ml @ 50 mls/hr AD PRN IV POTASSIUM PROTOCOL 12/26/23 22:30 01/25/24 22:29 Sodium Chloride 1,000 ml @ 75 mls/hr [id number] IV 12/26/23 22:30 01/25/24 22:29 12/27/23 00:41 75 MLS/HR DIAGNOSTICS / RADIOLOGY: [ ] ASSESSMENT: Abdominal pain POA Primary headache POA Neurogenic bladder POA Uncontrolled diabetes POA Hyperlipidemia POA Uncontrolled hypertension POA Hypothyroidism POA Possible trigeminal neuralgia POA Hypercalcemia POA Neurogenic bladder POA Recent cystoscopy with Botox injection POA PLAN: The patient to be admitted to the medical floor Clear liquid diet Supportive care with IV fluids Continue on Famotidine 20 mg IV bid for GI prophylaxis We will replace electrolytes as needed per protocol Continue on insulin sliding scale AC & HS with hypoglycemia protocol Continue prn medication for fever,pain, nausea & vomiting Follow fecal occult blood CT abdomen pelvis reviewed GI consultation requested, we will follow input and recommendation Home medications reviewed Replace electrolytes IV per protocol GI DVT prophylaxis Further orders to follow depending on above results ABHAY PHAM MD Dec 27, 2023 07:50
--- NOTE | 2023-12-27 08:24 | NUR ---
GI CONSULT: PATIENT REPORT GIVEN TO PROVIDER WILD
[2023-12-27] MEDS ORDERED: ESTRADIOL 1 GM TP SCH (08:30)
[2023-12-27 08:46] LABS: ERYTHROCYTE SEDIMENTATION RATE 25 MM/HR (0-30)
[2023-12-27] MEDS: PANTOPrazole 40 MG TAB DR PO SCH (09:00)
[2023-12-27] MEDS ORDERED: IOHEXOL 350 MG/ML 100ML INFUS..BTL IV ONE (09:29)
[2023-12-27] MEDS: FAMOTIDINE 20MG VIAL IV SCH (09:48)
[2023-12-27] MEDS: MAGNESIUM 2GM PREMIX 50ML 50 ML IV PRN (09:49)
[2023-12-27] MEDS: valaCYCLOvir HCL 500 MG TABLET PO SCH (10:07)
[2023-12-27] MEDS: PoTASSium chloRIDE 20MEQ ER 20 MEQ ERTAB PO SCH (10:07)
[2023-12-27] MEDS: (Dapagliflozin Propanediol (Farxiga) 1 TAB) PO SCH (10:11)
[2023-12-27] MEDS: CALCITRIOL PO SCH (10:11)
[2023-12-27] MEDS: CANDESARTAN CILEXETIL PO SCH (10:11)
[2023-12-27] MEDS: VIT C PO SCH (10:11)
[2023-12-27] MEDS: (Mirabegron (Myrbetriq) 1 TAB) PO SCH (10:11)
[2023-12-27] MEDS: D MANNOSE 500 MG PO SCH (10:11)
[2023-12-27] MEDS: CRANBERRY EXTRACT PO SCH (10:11)
--- NOTE | 2023-12-27 10:12 | NUR ---
PATIENT SELF ADMINISTERED HOME MEDICATIONS PER ORDER
--- NOTE | 2023-12-27 10:42 | HMCIMG ---
CT ABDOMEN/PELVIS W/WO CONTRAS HISTORY: Abdominal pain COMPARISON: 02/04/2019 TECHNIQUE: Multiple sequential axial images of the abdomen and pelvis were obtained from the dome of the diaphragm through symphysis pubis. Patient was given 100 cc of Omnipaque through intravenous route. Oral contrast was not given. FINDINGS: No pleural effusion is seen bilaterally. There is no evidence of parenchymal disease or pulmonary nodule of the visualized lower lungs. Degenerative changes of the thoracolumbar spine are present. The heart is not enlarged. Post cholecystectomy changes are seen. Liver measures 15 cm. Poor gastric distention is seen with gastric wall thickening. The liver, spleen, adrenal glands and pancreas are unremarkable. There is no evidence of hydronephrosis bilaterally. No evidence of renal stone is seen. Fecal material is seen in the colon. There are normal size retroperitoneal and mesenteric lymph nodes. No ascites is seen. Atherosclerotic changes are present. Appendix is not well seen limiting evaluation. There is diverticulosis. Pelvic sidewalls are symmetric bilaterally. Bladder is moderately distended without wall thickening. IMPRESSION: 1. Fecal material is seen in the colon. No ascites is seen. CT was performed with one or more following dose reduction techniques: automated exposure control, adjustment of the mA and kv according to patient's size, or use of a iterative reconstruction technique.
--- NOTE | 2023-12-27 13:20 | CONS ---
GASTROENTEROLOGY CONSULTATION NOTE Date of Consultation: Dec 27, 2023 Time of Consultation: 13:20 History of Present Illness: [ ] Review of Systems: CONSTITUTIONAL: No malaise or change in sensation of wellbeing. ENMT: No rhinorrhea, otorrhea, sinus pain, ear ache. CARDIOVASCULAR: No angina, palpitations, orthopnea or paroxysmal dyspnea. RESPIRATORY: No SOB. GASTROINTESTINAL: No abdominal pain, nausea, vomiting, diarrhea, hematemesis, melena or change in the patient's habitual bowel movements consistency/number. GENITOURINARY: No dysuria, hematuria or change in bladder continence. MUSCULOSKELETAL: No new muscle pain or decrease in muscular strength. No new joint swelling, redness or tenderness. SKIN: No new rash. Past Medical History: [ ] Past Surgical History: [ ] Past Social History: [ ] Family History: [ ] Coded Allergies: ibuprofen (Unverified Allergy, Mild, HIVES, HYALLUCINATIONS, 02/07/17) diphenhydramine (Unverified Allergy, Unknown, HIVES, HALLUCINATIONS, 02/07/17) Physical Exam: GEN: Awake, alert, oriented in person, time and place, and in no acute distress. HEENT: No sinus tenderness. Tympanic membranes were not examined. No rhinorrhea. Oral pharyngeal mucosa is pink, moist and within normal limits. Neck is supple with no cervical lymphadenopathy, thyromegaly or JVD. CHEST: Inspection, palpation and percussion of the chest were unremarkable. Lung auscultation revealed normal breath sounds bilaterally. CARDIAC: PMI is within normal limits. Heart sounds are regular. Normal S1, S2. No gallop or murmur. ABD: Soft, non-tender and not distended. No peritoneal signs on palpation. No organomegaly. Normal bowel sounds. EXT: No cyanosis or clubbing. No edema. SKIN: Intact. No rashes. JOINTS: No evidence of synovitis or acute arthritis. NEURO: Alert and oriented to name, place and person. Cranial nerve examination is unremarkable. No focal motor deficits. Normal speech. Gait is normal. Strength is normal. Vital Sign (Last 24 Hours) 12/27/23 12/27/23 08:08 10:36 Temp 97.7 Pulse 60 Resp 14 B/P (MAP) 128/68 Pulse Ox 100 O2 Delivery Room Air* O2 Flow Rate 0 FiO2 21 Laboratory: [ ] Laboratory: Test 12/27/23:34 12/27/23 06:49 12/27/23 06:30 12/26/23 19:31 Range/Units Whole Blood Glucose 103 70-110 MG/DL Stool Occult Blood NEGATIVE NEGATIVE White Blood Count 7.7 # 4.8-10.8 K/uL Red Blood Count 4.03 4.00-5.50 MIL/uL Hemoglobin 11.4 L 12.0-16.0 g/dL Hematocrit 36.1 36-48 % Mean Corpuscular Volume 89.6 79-99 fL Mean Corpuscular Hemoglobin 28.3 27.0-33.0 pg Mean Corpuscular Hemoglobin Concent 31.6 L 32.0-36.0 g/dL Red Cell Distribution Width 14.3 11.0-15.5 % Platelet Count 352 130-400 K/uL Mean Platelet Volume 9.5 7.5-10.5 fL Immature Granulocyte % (Auto) 1.2 H 0-1 % Neutrophils (%) (Auto) 69.6 40.0-77.0 % Lymphocytes (%) (Auto) 24.3 21.0-51.0 % Monocytes (%) (Auto) 3.9 3.0-13.0 % Eosinophils (%) (Auto) 0.5 0.0-8.0 % Basophils (%) (Auto) 0.5 0.0-5.0 % Neutrophils # (Auto) 5.4 1.8-7.7 K/uL Lymphocytes # (Auto) 1.9 1.0-4.8 K/uL Monocytes # (Auto) 0.3 0.1-1.0 K/uL Eosinophils # (Auto) 0.04 0.00-0.70 K/uL Basophils # (Auto) 0.04 0.00-0.20 K/uL Absolute Immature Granulocyte (auto 0.09 0-1 K/uL Nucleated Red Blood Cells 0.0 0.0-0.19 % Erythrocyte Sedimentation Rate 25 0-30 MM/HR Sodium Level 142 136-145 mmol/L Potassium Level 4.5 3.5-5.1 mmol/L Chloride Level 107 101-111 mmol/L Carbon Dioxide Level 27 21-32 mmol/L Blood Urea Nitrogen 18 7-18 mg/dL Creatinine 0.8 0.5-1.0 mg/dL Glomerular Filtration Rate Calc 78 >90 mL/min Random Glucose 110 H 70-105 mg/dL Total Calcium 9.3 8.5-10.1 mg/dL Ionized Calcium 1.23 1.16-1.32 MMOL/L Magnesium Level 1.60 L 1.80-2.40 mg/dL Total Bilirubin 0.3 0.2-1.0 mg/dL Aspartate Amino Transf (AST/SGOT) 20 10-37 U/L Alanine Aminotransferase (ALT/SGPT) 48 12-78 U/L Alkaline Phosphatase 122 50-136 U/L Total Protein 6.6 6.0-8.3 g/dL Albumin 3.1 L 3.5-5.0 g/dL Thyroid Stimulating Hormone (TSH) 0.10 #L 0.36-3.74 uIU/mL Urine Color LIGHT-YELLOW YELLOW Urine Appearance CLEAR CLEAR Urine pH 5.0 5.0-8.0 Urine Specific [place] 1.013 1.001-1.031 Urine Protein NEGATIVE NEGATIVE mg/dL Urine Glucose (UA) >=1000 H NEGATIVE mg/dL Urine Ketones NEGATIVE NEGATIVE mg/dL Urine Occult Blood NEGATIVE NEGATIVE Urine Nitrate NEGATIVE NEGATIVE Urine Bilirubin NEGATIVE NEGATIVE mg/dL Urine Urobilinogen 0.2 0.2-1.0 mg/dL Urine Leukocyte Esterase NEGATIVE NEGATIVE Dung/uL Urine RBC 0-1 0-1 /HPF Urine WBC 2-5 H 0-1 /HPF Urine Squamous Epithelial Cells RARE 0-2 /HPF Urine Bacteria RARE None Seen /HPF Test 12/26/23 16:20 Range/Units Total Creatine Kinase 17 #L 21-232 U/L Current Medications Medications (Trade) Dose Ordered Sig/Alexis Route PRN Reason Start Time Stop Time Status Last Admin Dose Admin Acetaminophen (TYLenol 325MG TAB) 650 mg Q6H PRN PO MILD PAIN (1-3) 12/27/23 06:00 01/26/24 05:59 12/27/23 05:07 650 MG Atorvastatin Calcium (LIPItor 40MG) 40 mg HS PO 12/27/23 21:00 01/26/24 20:59 Dextrose (D50w) 50 ml AD PRN IV HYPOGLYCEMIA PROTOCOL 12/26/23 22:30 01/25/24 22:29 Famotidine (Pepcid 20mg Vial) 20 mg BID IV 12/27/23 09:00 01/26/24 08:59 12/27/23 09:48 20 MG Glucagon (Glucagon 1mg Kit) 1 mg AD PRN IM HYPOGLYCEMIA PROTOCOL 12/26/23 22:30 01/25/24 22:29 Guaifenesin/ Dextromethorphan (RobiTUSSin DM 200/20MG 10ML) 10 ml Q4H PRN PO COUGH 12/26/23 22:30 01/25/24 22:29 Home Med (Home Medication) (Calcitriol 1 CAP) DAILY PO 12/27/23 09:00 01/26/24 08:59 12/27/23 10:11 1 EACH Home Med (Home Medication) (Candesartan Cilexetil 1 TAB) DAILY PO 12/27/23 09:00 01/26/24 08:59 12/27/23 10:11 1 EACH Home Med (Home Medication) (Cranberry Extract/ Vit C (... BID PO 12/27/23 09:00 01/26/24 08:59 12/27/23 10:11 1 EACH Home Med (Home Medication) (D-Mannose (Azo D-Ti... TID PO 12/27/23 09:00 01/26/24 08:59 12/27/23 10:11 1 EACH Home Med (Home Medication) (Dapagliflozin Propanediol (Farxiga... DAILY PO 12/27/23 09:00 01/26/24 08:59 12/27/23 10:11 1 EACH Home Med (Home Medication) (Estradiol (Estrace) 1 GM) AD TP 12/27/23 08:30 01/26/24 08:29 Home Med (Home Medication) (Mirabegron (Myrbetriq) 1 TAB) DAILY PO 12/27/23 09:00 01/26/24 08:59 12/27/23 10:11 1 EACH Home Med (Home Medication) Cyclosporine (Restasis) BID OP 12/27/23 09:00 01/26/24 08:59 12/27/23 10:11 1 EACH Hydralazine HCl (APRESOLine 20MG INJ) 10 mg Q6H PRN IV For:SBP above 160;DBP above 90 12/26/23 22:30 01/25/24 22:29 Insulin Human Regular (humuLIN R 100 UNIT/ML 3ML) INSULIN SLIDING SCAL... ACHS SQ 12/27/23 07:30 01/26/24 07:29 Levothyroxine Sodium (SYNTHroid 88MCG TAB) 88 mcg SYN PO 12/28/23 06:30 01/27/24 06:29 Magnesium Sulfate 50 ml @ 0 mls/hr PROTOCOL PRN IV OTHER [SEE ORDER COMMENTS] 12/26/23 22:30 01/25/24 22:29 12/27/23 09:49 25 MLS/HR Ondansetron HCl (zoFRAN 4MG INJ) 4 mg Q6H PRN IV NAUSEA/VOMITING 12/26/23 22:30 01/25/24 22:29 Pantoprazole Sodium (PROTonix 40MG TAB) 40 mg DAILY PO 12/27/23 09:00 01/26/24 08:59 Potassium Chloride 100 ml @ 50 mls/hr AD PRN IV POTASSIUM PROTOCOL 12/26/23 22:30 01/25/24 22:29 Potassium Chloride (K-Dur/Klor-Con 20meq) 20 meq TID PO 12/27/23 09:00 01/26/24 08:59 12/27/23 10:07 20 MEQ Sodium Chloride 1,000 ml @ 75 mls/hr [id number] IV 12/26/23 22:30 01/25/24 22:29 12/27/23 11:36 75 MLS/HR Valacyclovir HCl (ValtREX) 500 mg DAILY PO 12/27/23 09:00 01/26/24 08:59 12/27/23 10:07 500 MG Diagnostics / Radiology: [COPY/PASTE HERE IF NO REPORTS PLEASE DELETE SECTION] Assessment: [ ] Plan: [ ] SALLY KIM RESEARCH PROJECT MANAGER Dec 27, 2023 13:20
--- NOTE | 2023-12-27 15:55 | NUR ---
SCHEDULED 20 MEQ K DUR AT 1400 DECLINED.STATED WANTS TO TAKE HER HOME POTASSIUM DUE TO CAPSULE VS CHALK PILL.
--- NOTE | 2023-12-27 16:13 | NUR ---
CLEARED BY BABITA ROME NP FOR DISCHARGE TO HOME. CLEARED BY HOSPITALIST-DR PHAM FOR DISCHARGE TO HOME.
[2023-12-27 16:44] VITALS: BP 157/61; PULSE 72; RESP 18; TEMP 98.3
[2023-12-27 16:49] VITALS: BP 155/60; PULSE 71; RESP 16; TEMP 98.2; O2SAT 99
[2023-12-27] MEDS ORDERED: atorVAStatin 40 MG TABLET PO SCH (21:00)
[2023-12-28] MEDS ORDERED: levoTHYROxine 88 MCG TABLET PO SCH (06:30)
--- NOTE | 2023-12-28 09:02 | DS ---
Discharge Summary Hospital Course Summary: Date of service 12/27/2023 Patient admitted to the hospital 12/26/2023 with the following history of the present illness: This is a 73 year old female with past medical history of diabetes,hypertension,thyroid cancer,hyperlipidemia,hypothyroidism & urinary incontinence who presents to the ED for multiple complaints : such as headache,facial pain ,dry mouth,generalized body weakness ,left ankle pain and abdominal pain which started today. Patient reported she had a cystoscopy with botox injection last ,5 days ago and she had a scopolamine patch placed by and after she removed it she noticed she started having all these symptoms so she decided to come to the ED for evaluation.Patyient reports she has nausea and non bloody vomiting x 1 today.Patient reports she didnt have these symptoms on her first cystoscopy procedure as this is the second time she said. Seen and examined patient in the ED ,awake,alert and coherent continue to complain of dry mouth, abdominal pain and mild headache. Patient denies fever, chills, constipation, diarrhea, dysuria, chest pain, palpitation, cough and shortness of breaths. Vital signs temperature 98.2, heart rate 70, blood pressure 158/67 saturation 99% on room air. Labs: WBC 10.7, hemoglobin 11.6, hematocrit 36.8, platelet count 411. BUN 20 glucose 135, total calcium 10.[address] head without contrast result revealed diffuse atrophy no acute intracranial bleed is seen nonspecific white matter changes. While in the ER patient was given Protonix 40 mg p.o., his own 20 mg p.o., T ylenol 1000 mg p.o. and started on NS 1 L bolus. Patient is seen and evaluated by GI Services, case discussed, sonia for the p atient to be discharged home and follow up as an outpatient. [employer] Writer(s): GI services. Assessment/Plan: Final diagnosis Abdominal pain POA Primary headache POA Neurogenic bladder POA Uncontrolled diabetes POA Hyperlipidemia POA Uncontrolled hypertension POA Hypothyroidism POA Possible trigeminal neuralgia POA Hypercalcemia POA Neurogenic bladder POA Recent cystoscopy with Botox injection POA Discharge Instructions: Patient to follow up with her PCP and GI Services as an outpatient and to return to the hospital for condition changes. Home Medications: Reported Medications Nitrofurantoin/Nitrofuran Mac (Macrobid) 100 Mg Cap, 1 CAP PO BID 12/27/23 Metformin HCl (Metformin HCl) 500 Mg Tablet, 1.5 TAB PO BID for 30 Days, #60 TAB 0 Refills 12/27/23 Aspirin (Lo-Dose Aspirin EC) 81 Mg Tablet.dr, 1 TAB PO DAILY for 30 Days, #30 TAB 0 Refills 12/27/23 Cranberry Extract/Vit C (Azo Cranberry Softgel) 250 Mg-60 Mg Capsule, 1 CAP PO BID for 30 Days, #30 CAP 0 Refills 12/27/23 D-Mannose (Azo D-Mannose) 500 Mg Capsule, 500 MG PO TID, CAP 12/27/23 Estradiol (Estrace) 0.01 % Cream.appl, 1 GM VG AD for 30 Days, #42.5 GM 0 Refills 12/27/23 Cyclosporine (Restasis) 0.05 % [place]pe[place], 1 DROP OP BID for 30 Days, #60 EACH 0 Refills 12/27/23 Candesartan Cilexetil (Candesartan Cilexetil) 8 Mg Tablet, 1 TAB PO DAILY for 30 Days, #30 TAB 0 Refills 12/27/23 Estrogens,Conjugated (Premarin) 0.625 Mg Tab, 1 TAB PO DAILY for 30 Days, #30 TAB 0 Refills 12/27/23 Mirabegron (Myrbetriq) 50 Mg Tab.er.24h, 1 TAB PO DAILY 12/27/23 Dapagliflozin Propanediol (Farxiga) 10 Mg Tablet, 1 TAB PO DAILY for 30 Days, #30 TAB 0 Refills 12/27/23 Calcitriol (Calcitriol) 0.5 Mcg Capsule, 1 CAP PO DAILY for 30 Days, #30 CAP 0 Refills 12/27/23 Levothyroxine Sodium (Levothyroxine) 88 Mcg Capsule, 1 CAP PO DAILY for 30 Days, #30 CAP 0 Refills 11/24/23 Montelukast Sodium (Montelukast Sodium) 10 Mg Tablet, 10 MG PO HS, TAB 11/24/23 Ergocalciferol (Vitamin D2) (Vitamin D2) 1,250 Mcg (43593 Unit) Capsule, 1250 MCG PO WED, CAP 05/19/23 Atorvastatin Calcium (Atorvastatin Calcium) 40 Mg Tablet, 40 MG PO HS, TAB 05/19/23 Dexlansoprazole (Dexlansoprazole ) 30 Mg Cap.bp, 30 MG PO DAILY 09/20/22 Valacyclovir HCl (Valacyclovir) 500 Mg Tablet, 500 MG PO DAILY, TAB 09/20/22 Potassium Chloride (Potassium Chloride) 10 Meq Tab.er.prt, 20 MEQ PO TID 09/20/22 Discontinued Reported Medications Chlorpheniramine Maleate (Chlorpheniramine Maleate) 4 Mg Tablet, 4 MG PO AD PRN for ALLERGIES, TAB 11/24/23 Clotrimazole/Betamethasone Dip (Clotrimazole-Betamethasone Crm) 1 %-0.05 % Cream..g., 1 APPL TP AD for 7 Days, #30 GM 0 Refills apply to affected area(s) 11/24/23 Fexofenadine HCl (Fexofenadine HCl) 180 Mg Tablet, 1 TAB PO DAILY for allergy symptoms for 30 Days, #30 TAB 0 Refills 11/24/23 [Estradiol] No Conflict Check, 1 APPL VG 2/WK 05/19/23 Estrogens,Conjugated (Premarin) 0.625 Mg Tab, 0.625 MG PO AM, TAB 05/19/23 Fluticasone Propionate (Flonase Nasal [place]) 50 Mcg/Actuation [place], 2 SPRAY NASAL DAILY, SPRAY 09/20/22 Candesartan Cilexetil (Candesartan Cilexetil) 8 Mg Tablet, 8 MG PO DAILY, TAB 09/20/22 Metformin HCl (Metformin HCl) 500 Mg Tablet, 750 MG PO BID, TAB 09/20/22 Calcitriol (Calcitriol) 0.5 Mcg Capsule, 0.5 MCG PO BID, CAP 09/20/22 Time spent arranging discharge: 31-60 minutes ABHAY PHAM MD Dec 28, 2023 09:02
== END 2023-12-27 16:50 | disposition home or self-care (01) | DRG 74 ==
LOC: EDH 15:12 → EDHIP 21:33
PROVIDERS: ADMIT Internal Medicine; ATTEND Internal Medicine
DX: G50.0 Trigeminal neuralgia (principal); E78.00 Pure hypercholesterolemia, unspecified; E83.52 Hypercalcemia; I10 Essential (primary) hypertension; N31.9 Neuromuscular dysfunction of bladder, unspecified; Z82.49 Family history of ischemic heart disease and other diseases of the circulatory system; Z83.3 Family history of diabetes mellitus; Z85.850 Personal history of malignant neoplasm of thyroid; Z90.49 Acquired absence of other specified parts of digestive tract; Z90.710 Acquired absence of both cervix and uterus
CPT/HCPCS: 36415; 70450; 74018; 74178; 80048; 80053; 81001; 82270; 82330; 82550; 82948; 83735; 83970; 84443; 85025; 85651; 96360; 99285; G0378; J3475; J3490; J7030; Q9967

== ENCOUNTER → 2024-10-01 | Outpatient (CLI) | payer MEDICARE, MEDICAID ==
[~2024-10-01] MED LIST changes: +ASPI-1521 PO; -CHLO4TAB32 PO; -CLOT15CR5 TP; +CRAN1CAP5 PO; +CYCL30DR OP; +D-MA500C PO; +DAPA10TA PO; +ESTR42.53 VG; -ESTRADIOL VG; -FEXO-263 PO; -FLUT16H NASAL; -LEVO88CA4 PO; +LEVO88CA5 PO; +MACR100 PO; +MIRA50TA PO
[2024-10-01 09:04] LABS: IMMATURE GRANULOCYTE ABSOLUTE 0.04 K/uL (0-1); NUCLEATED RED BLOOD CELLS 0.0 % (0.0-0.19); PLATELET COUNT (AUTO) 326 K/uL (130-400); RED BLOOD CELL COUNT(AUTO) 4.44 MIL/uL (4.00-5.50); RED CELL DISTRIBUTION WIDTH 12.8 % (11.0-15.5); WHITE BLOOD COUNT (AUTO) 6.4 K/uL (4.8-10.8)
[2024-10-01 09:14] LABS: % IRON SATURATION 12.8 % (22-44); IRON, SERUM 52.0 mcg/dL (50-170)
[2024-10-01 09:55] LABS: CREATININE 0.8 mg/dL (0.5-1.0); GLOMERULAR FILTR. RATE CALC 78.0 mL/min (>90); UREA NITROGEN, BLOOD 16.0 mg/dL (7-18)
== END | disposition home or self-care (01) ==
LOC: LAB 08:04
PROVIDERS: ATTEND Internal Medicine Gastroenterology
DX: D64.9 Anemia, unspecified (principal); R10.30 Lower abdominal pain, unspecified; R14.0 Abdominal distension (gaseous)
CPT/HCPCS: 36415; 82565; 82728; 82784; 83540; 83550; 84520; 85025; 86364

== ENCOUNTER → 2024-10-22 | Outpatient (CLI) | payer MEDICARE, MEDICAID ==
[~2024-10-22] MED LIST changes: +IOHEXOL-350 75 ML VIAL IV ONE
--- NOTE | 2024-10-22 10:17 | HMCIMG ---
CT ABDOMEN/PELVIS W/CONTRAST HISTORY: Lower abdominal pain, unspecified. COMPARISON: None. TECHNIQUE: Sequential axial images through abdomen and pelvis were performed. Patient was given 75 mL of Omnipaque IV. She was also given oral contrast. Coronal and sagittal reformats were obtained. FINDINGS: Lung bases: Clear. Liver: Normal size and enhancement throughout. Portal vein: Patent. Gallbladder: Gallbladder is surgically absent. Spleen: Normal. Kidneys: Normal size and shape. Adrenal glands: Normal Pancreas: Unremarkable. Stomach and small bowel: No inflammation or distention noted. Colon: There are scattered diverticulosis with no evidence of diverticulitis. Appendix: Appendix is surgically absent Bladder: Partially distended and unremarkable. Reproductive system: Status post hysterectomy. Abdominal aorta: Normal caliber. Skeletal: There is mild dextroscoliosis of the lumbar spine. There is osteoarthritic changes and disc disease most severe at L4-L5 and L5-S1. IMPRESSION: No acute process noted.
== END | disposition home or self-care (01) ==
LOC: RAH 08:00
PROVIDERS: ATTEND Internal Medicine Gastroenterology
DX: K57.30 Diverticulosis of large intestine without perforation or abscess without bleeding (principal); R10.30 Lower abdominal pain, unspecified; N32.89 Other specified disorders of bladder; M41.86 Other forms of scoliosis, lumbar region; M47.817 Spondylosis without myelopathy or radiculopathy, lumbosacral region; Z90.49 Acquired absence of other specified parts of digestive tract; Z90.710 Acquired absence of both cervix and uterus
CPT/HCPCS: 74177; Q9967